=== PATIENT | female | born 1940 | race Caucasian/White ===

== ENCOUNTER → 2023-05-30 16:07 | Outpatient (REF) | payer MEDICARE, OTHER, SELFPAY | LOC: REG 16:07 | PROVIDERS: ATTENDING PHYSICIAN Nurse Practitioner Family; FAMILY PHYSICIAN Student in an Organized Health Care Education/Training Program | DX: J47.9 Bronchiectasis, uncomplicated (principal); R05.9 Cough, unspecified | CPT/HCPCS: 87070; 87205 ==

== ENCOUNTER 2024-01-25 09:12 | Inpatient (IN) | payer MEDICARE, OTHER, SELFPAY ==
[2024-01-25] VITALS (11 sets, daily range): BP systolic 110–139; BP diastolic 64–98; PULSE 62–97; O2SAT 95; BMI 21.8; BMI 21.0
--- NOTE | 2024-01-25 06:50 | ED.GENMED ---
History of Present Illness
General
Chief Complaint: Breathing Problem
Source: patient
Time Seen by Provider: 01/25/24 06:37
History of Present Illness
History of Present Illness:
83-year-old female presents emergency room complaining of shortness of breath. Patient has been experiencing shortness of breath over the past several days but symptoms seem to be worse tonight. In particular she could not lay back because she was
short of breath. Pt also noted lower ext edema. Unsure about weight gain. No chest pain. Pt has mild cough which is chronic. Pt is compliant with medications.
Past History
Past History
ED Past Medical History: Hypothyroidism and Other
ED Past Surgical History: Urological (Kidney stone surgery in the past)
Social History
Tobacco: Non-smoker
Alcohol: None
Drug: None
Personal:
Living: with family
Employment: Retired
Family History
Family History: Other (Noncontributory)
Phy Exam
Physical Exam
Physical Exam:
General: Awake, Alert, Oriented X3. No acute distress.
Vitals: unremarkable
Head: Atraumatic
Eyes: Pupils equal, EOMI
Throat: Airway intact, no exudates
Neck: Trachea midline
Lungs: Crackles bilateral bases
Heart: Regular rate, no murmurs
Abd: Soft, Nontender, No pulsatile mass
Neuro: Nonfocal
Skin: Warm, dry, no rash
Extremities: pulses equal b/l, 1+ edema
Scores
Heart Failure Risk
Heart Failure Risk Score: Yes
History of Stroke or TIA: No
History of intubation for respiratory distress: No
Heart rate on ED arrival >/= 110: No
SaO2 <90% on arrival on room air: No
HR >/=110 during 3min walk test (or too ill to perform test): Yes
ECG has acute ischemic changes: No
Urea >/=12mmol/L (BUN 33.6mg/dL): No
Serum CO2>/=35mmol/L: No
Troponin I or T elevated to NV Level (0.4mg/dL): No
NT-proBNP >/=5,000ng/L (5,000pg/ml): No
HF Risk Score: 2
Admission Status: MEDIUM RISK 9.2% Consider observation or discharge to home with homecare & f/u visit to PCP/Nurse Case Management, or SNF for treatment
Course
Orders/Labs/Results
Orders:
Orders
01/25/24 06:06
EKG [Electrocardiogram (*1)] Urgent
Reason for Study: Shortness of Breath
01/25/24 06:07
EKG- Treatment ONCE
01/25/24 06:47
Cardiac Monitoring- Treatment ONCE
CR Chest - 2 Views Urgent
Comment:
Reason For Exam: shortness of breath
01/25/24 07:09
Basic Metabolic Panel Urgent
Complete Blood Count/With Diff Urgent
NT-proBNP Urgent
Troponin I Urgent
01/25/24 07:56
Furosemide [Lasix] 40 mg IV NOW STA
01/25/24 08:32
Admit/Transfer Patient As Directed
Co-Sign Provider:
Level of Care: Inpatient admission
Assign to:: Telemetry
Physician / Group: Hospitalist
Diagnosis: CHF
Reason for Telemetry: Arrhythmia
Date to Stop Telemetry: 01/28/24
Time to Stop Telemetry: 11:00
Reason for Hospitalization: as above
Expected length of stay greater than two midnights?: Yes
ELOS- Estimated Length of Stay in days: 3
I certify the patient meets the requirements for IP care: Yes
PRN Pain Medication Management As Directed
May give lesser potent ordered pain med per pt: Yes
preference::
Protocol:: Medication orders for pain may be administered in a
manner that supports deferring to patient preference
when the pt is:
- Requesting an ordered lesser potent pain medication.
Least to most potent pain medications are defined
as: acetaminophen < NSAID < tramadol < opioids
(morphine, oxycodone, hydromorphone).
- Requesting a lesser dose of the same medication IF
ORDERED.
- Requesting a less intrusive route of administration
if both routes are prescribed by the provider (PO <
IV).
01/25/24 08:35
Code Status As Directed
Resuscitation Status: Do not resuscitate
Reached after discussion with pt or family/Healthcare POA: Yes
DNR Bracelet Application ONCE
01/25/24 09:58
Echo 2D MMode Color/Doppler Routine
Reason for Study: heart failure
CARDIOLOGY CONSULT Routine
Consulting Provider: Brice Gutiérrez
Was physician already notified: Yes
Reason for consult: HF
Activity As Directed
Activity Level: As Tolerated
Intake/ Output As Directed
Frequency: Per unit guidelines
Patient Education As Directed
Type: CHF folder
Comment: give on admission. Document in Interdisciplinary Education record
Vital Signs As Directed
Frequency: Other
Additional Instructions:: Q12 or per unit guidelines if more frequent.
Weight As Directed
Frequency: Daily
Type of Scale: Standing Scale
Comment: Daily morning weight. If unable to stand, use balanced bed scale.
Weight As Directed
Frequency: Once
Type of Scale: Standing Scale
Comment: Upon Admission. If unable to stand, use balanced bed scale.
Pulse Ox/cont/shift [RESP] Routine
Quantity: 1
Special Instructions: Daily pulse oximetry at rest. If greater than 92% at rest also obtain pulse oximetry
while ambulating as tolerated.
Ot Eval And Treat Routine
Pt Eval And Treat Routine
Activity Level: Ambulate
01/25/24 Lunch
2 Gram Sodium [Sodium, 2 Gram]
At Your Request: Full Participation
01/25/24 16:00
Furosemide [Lasix] 40 mg IV BID AT 0800,1600
01/25/24 18:00
Atorvastatin [Lipitor] 40 mg PO QPM
Famotidine [Pepcid] 20 mg PO QPM
01/25/24 20:00
Apixaban [Eliquis] 2.5 mg PO BID
Metoprolol Xl [Toprol Xl] 12.5 mg PO BID
01/26/24 08:00
Cholecalciferol (Vitamin D3) [VITAMIN D3 (cholecalciferol)] 25 mcg PO DAILY
Cyanocobalamin [Vitamin B-12] 500 mcg PO MoWeFr@0800
Multivitamin [Theragran] 1 tablet PO DAILY
Potassium Citrate [Urocit-K] 10 meq PO DAILY
Psyllium [Metamucil, Konsyl] 1 packet PO DAILY
01/28/24 11:00
DC Protocol for Telemetry ONCE
Abnormal Lab Results
01/25/24
07:09
Absolute Lymphs (auto) 1.1 L 10^3/uL
(1.2-3.4)
Absolute Monos (auto) 0.8 H 10^3/uL
(0.1-0.6)
Lymphocytes % 19.5 L %
(20.5-51.1)
Monocytes % 13.4 H %
(1.7-9.3)
Chloride 97 L mmol/L
(98-107)
BUN 21 H mg/dl
(7-17)
Glucose 112 H mg/dl
(70-99)
01/25/24 07:09
01/25/24 07:09
Vital Signs
Initial and Last Documented VS:
Initial Vital Signs
Temp Pulse Resp BP Pulse Ox
98.5 F 92 22 134/85 94
01/25/24 06:16 01/25/24 06:16 01/25/24 06:16 01/25/24 06:16 01/25/24 06:16
Last Documented Vital Signs
Temp Pulse Resp BP Pulse Ox
97.7 F 94 18 118/75 94
01/25/24 10:18 01/25/24 10:18 01/25/24 10:18 01/25/24 10:18 01/25/24 10:18
MDM/Problems Addressed
Differential Diagnosis Includes:
CHF, symptomatic anemia, acute coronary syndrome
MDM/Problems Addressed:
Patient presents with progressive shortness of breath and peripheral edema. Workup here reveals bilateral pleural effusions with pulmonary edema as well as an elevated BNP. Troponins normal. EKG does not show any acute ischemic changes. She is
in A-fib but has a history of this. She is anticoagulated. Patient will require hospitalization for diuresis and further workup as she has no history of CHF.
*Radiology
Radiology exam reviewed: preliminary read by ED provider (Pulmonary edema with bilateral pleural effusions)
*Pulse Oximetry
Patient hypoxic: no
*EKG
Interpreted by ED Provider?: Yes
Interpretation: abnormal
Heart Rate: 101
Rate: tachycardiac
QRS Pattern: left vent hypertrophy
Ischemia: ST depression
*[employer] Interpretation
Rate: tachycardiac
Heart Rate: 101
Rhythm: a-fib
*Critical Care Note
Total Time (30-74mins, 75-104mins- exclusive of procedures): Not Applicable
ED Attending Note
-
Portions of this chart may have been created with voice recognition software.� Occasional wrong word or��sound alike� substitutions may have occurred due to the inherent limitations of voice recognition software.
Discharge Plan
Departure
Patient Disposition: Admit
Date of Disposition: 01/25/24
Time of Disposition: 08:02
Admit to: Med/Surg
Presentation/result/management discussed w/ accepting MD/DO: Hospitalist
Condition: Fair
Discharge Problem:
CHF (congestive heart failure)
Interventions
Interventions:
*Risk Screen - Suicide Last Done: 01/25/24 06:16
*General Assessment Last Done: 01/25/24 07:25
*Neglect/Abuse Screening Last Done: 01/25/24 07:25
ED- Fall Risk Assessment Last Done: 01/25/24 09:03
*ED COVID-19 Vaccine History Last Done: 01/25/24 10:44
*Nursing Disposition Last Done: 01/25/24 09:55
ED- Cardiac Assessment Last Done: 01/25/24 07:24
ED- Pulmonary Assessment Last Done: 01/25/24 07:24
Discharge Date and Time
Discharge Date/Time: 01/25/24 09:56
[2024-01-25 07:26] LABS: % Basophils 0.7 % (0-2); % Eosinophils 2.6 % (0-6); % Immature Granulocytes 0.3 % (0-0.5); % Lymphocytes 19.5 % (20.5-51.1); % Monocytes 13.4 % (1.7-9.3); % Neutrophils 63.5 % (42.2-75.2); Absolute Eosinophils 0.2 10^3/uL (0-0.7); Absolute Lymphocytes 1.1 10^3/uL (1.2-3.4); Absolute Monocytes 0.8 10^3/uL (0.1-0.6); Absolute Neutrophils 3.7 10^3/uL (1.4-6.5); Hematocrit 40.4 % (37.0-47.0); Hemoglobin 13.5 g/dL (12.0-16.0); Mean Corp Hgb Conc. 33.4 g/dL (33.0-37.0); Mean Corpuscular Volume 86.7 fL (81.0-99.0); Mean Platelet Volume 9.5 fL (7.4-10.4); Nucleated Red Blood Cells % 0 %; Platelet Count 219 10^3/uL (130-400); Red Blood Cell Count 4.66 10^6/uL (4.20-5.40); White Blood Cell Count 5.8 10^3/uL (4.8-10.8)
[2024-01-25 07:40] LABS: Blood Urea Nitrogen 21 mg/dl (7-17); Calcium 9.1 mg/dl (8.4-10.2); Carbon Dioxide 28 mmol/L (22-30); Chloride 97 mmol/L (98-107); Estimated Creatinine Clearance 46 ml/min; Glucose 112 mg/dl (70-99); Potassium 3.8 mmol/L (3.5-5.1); Sodium 136 mmol/L (135-145); eGFR > 60.00
[2024-01-25 07:51] LABS: NT-proBNP 3100 pg/ml; Troponin I < 0.012 ng/ml
[2024-01-25] MEDS: LASIX 40 MG IV ×2 (08:05→16:32)
--- NOTE | 2024-01-25 08:44 | CM ---
Patient seen at bedside in ED. Patient states that she lives in independent apartment at [facility] and her is in [facility] with end stage Kidney CA on Hospice. Patient states that she is not driving due to stroke, no other DME.
Patient has no history of VN, SNF or aides. Patient PCP is Dr. Hoff and [facility] in [facility]. Patient plan is to return to her home/ apartment. CM will continue to follow for discharge planning needs.
Plan; home with VN vs SNF pending medical treatment plan
--- NOTE | 2024-01-25 09:59 | HPS.HSE ---
Addendum entered and electronically signed by Andrei Vera MD, Resident 01/26/24 12:30:
Patient reports History of Benign Brain meningioma s/p Resection.
Addendum entered and electronically signed by Kait Otoole MD 01/25/24 16:36:
I personally performed a history and physical exam of the patient and discussed management with the resident. I reviewed the resident's note and agree with the documented findings and plan of care HPI/CC.
GENERAL: well developed, well nourished, female in no apparent distress
HEENT: NC/AT
HEART: irreg irreg
LUNGS : crackles at bases
ABDOM: soft, nontender, nondistended, + bowel sounds
EXT: no cyanosis, clubbing, or edema
NEUROLOGIC: grossly intact
Acute diastolic HF (preserved EF)--no history of CHF--pro BNP 3100 on admission-Volume overloaded on physical examination--CXR on presentation with moderate right pleural effusion with small left pleural effusion--could consider thoracentesis but pt
on eliquis.....agree with IV lasix 40 mg BID, daily weights, I/Os--apprec cards--echo with EF 50-55%, valvular isses (mitral regurg, tricuspid regurg, possible PFO?--apprec cards
Paroxysmal atrial fibrillation--EKG on presentation A-fib with RVR, although spontaneously converted back to normal sinus rhythm--Continue metoprolol succinate for rate control--cont Eliquis
Chronic recurrent kidney stones--Continue on home hydrochlorothiazide and potassium citrate
GERD--Continue famotidine
Prior CVA 2020/Hyperlipidemia-Continue on atorvastatin
DVT prophy-- Eliquis
CODE STATUS-- DNR
of note-- is imminently dying, would like to d/c pt if possible tomorrow
Original Note:
Family Physician
-
Family Physician: Gisselle Juarez
Chief Complaint
-
Shortness of breath
History of Present Illness
This is an 83-year-old female with past medical history of bronchiectasis, paroxysmal atrial fibrillation, hyperlipidemia, prior CVA, recurrent kidney stones who presents to ED for worsening shortness of breath. Patient reports she has been
experiencing shortness of breath over the past few days. Shortness of breath occurs at rest and with exertion. She reports while trying to lay back last night to sleep, shortness of breath worsened hence prompting her to come to the ED for
evaluation. In addition patient has noted lower extremity edema ongoing for the past few weeks. She reports she does not weigh herself, and does not think she has gained weight. She denies fever chest pain, palpitations. She reports mild cough
secondary to her chronic bronchiectasis. On presentation to ER, patient was afebrile, blood pressure 134/85, pulse 92, O2 sats 94% on room air. Evaluation with chest x-ray showed Moderate right pleural effusion with small left pleural effusion.
Medical History
Past Medical History
Past Medical History: Reports Other (Paroxysmal atrial fibrillation, prior CVA 3 years ago, GERD, recurrent chronic kidney stones, bronchiectasis, brain meningioma.)
Past Surgical History: Reports Other (Cataract surgery, meningioma tumor removal, pacemaker insertion with loop recorder.)
Social History
Tobacco: Non-smoker
Alcohol: None
Drug: None
Personal:
Living: Assisted Living
Employment: Retired
Family History
Family History: Cancer (Father: Lung cancer)
Allergies / Home Medications
Allergies reflects when Allergies were last updated in [facility].
Home Medications with original date entered in [facility]
Allergy/Medication List:
Allergies
Allergy/AdvReac Type Severity Reaction Status Date / Time
meperidine HCl [From Demerol] Allergy Unknown Swelling Verified 01/25/24 06:15
levofloxacin [From Levaquin] Allergy dizziness Verified 01/25/24 06:15
Home Medications
cyanocobalamin (vitamin B-12) 500 mcg tablet (Vitamin B-12) 500 mcg PO MOWEFR Supplement 01/04/09
hydrochlorothiazide 25 mg tablet 12.5 mg PO DAILY Blood Pressure 01/04/09
metoprolol succinate 25 mg tablet,extended release 24 hr 12.5 mg PO BID Blood Pressure 04/25/16
famotidine 20 mg tablet 20 mg PO HS Gastrointestinal Issue 02/11/19
methenamine hippurate 1 gram tablet 1 g PO BID Urinary Issue 02/11/19
cholecalciferol (vitamin D3) 25 mcg (1,000 unit) capsule (Vitamin D3) 1,000 unit PO DAILY Supplement 04/05/19
potassium citrate 10 mEq (1,080 mg) tablet,extended release 10 meq PO DAILY Electrolyte Repletion 04/05/19
psyllium husk (aspartame) 3.4 gram oral powder packet (Metamucil Fiber Singles) 2 tsp PO DAILY Constipation 04/05/19
apixaban 5 mg tablet (Eliquis) 2.5 mg PO BID Blood Clot Prevention/Tx 09/20/20
atorvastatin 20 mg tablet (Lipitor) 20 mg PO HS High Cholesterol 01/25/24
therapeutic multivitamin 1 tab PO DAILY Supplement 01/25/24
Review of Systems
-
A 12 point ROS was completed and negative except as noted: Yes
Constitutional: Reports See HPI
Respiratory: Reports Trouble Breathing
Cardiac: Reports No Symptoms
Physical Exam
Vital Signs
Vital Signs
Temp Pulse Resp BP Pulse Ox
98.5 F 100 16 120/98 94
01/25/24 06:16 01/25/24 09:00 01/25/24 09:00 01/25/24 09:00 01/25/24 09:00
Physical Exam
General: Well Developed and No Apparent Distress
HEENT: NormoCephalic
Respiratory: Crackles (Bilateral crackles at bases)
Cardiac: S1/S2 and Regular Rhythm
GI: Soft, Non Tender, Non Distended and Normal Bowel Sounds
Musculoskeletal: Edema, Left Lower Extremity and Edema, Right Lower Extremity
Neuro: Awake, Alert, Oriented and AO x 3
Psych: Calm
Laboratory Results
-
01/25/24 07:09
01/25/24 07:09
Laboratory Results
Troponin I < 0.012 ng/ml 01/25/24 07:09
Impression/Plan
-
IMPRESSION/PLAN:
#Acute HF(EF Unknown)
-Volume overloaded on physical examination
-CXR on presentation with moderate right pleural effusion with small left pleural effusion
-proBNP 3100
-Given one-time IV Lasix 40 mg in ED
-Continue IV Lasix 40 mg twice daily.
-I's and O's, daily weights
-Cardiology consulted
-Echocardiogram ordered
#Paroxysmal atrial fibrillation
-EKG on presentation A-fib with RVR, although spontaneously converted back to normal sinus rhythm.
-Continue metoprolol succinate for rate control.
-Anticoagulation with Eliquis.
#Chronic recurrent kidney stones
-Continue on home hydrochlorothiazide and potassium citrate
#GERD
-Continue famotidine
#Prior CVA 2020
#Hyperlipidemia
-Continue on atorvastatin
DVT prophylaxis; Eliquis
CODE STATUS; DNR
--- NOTE | 2024-01-25 10:33 | CON.CAR ---
Addendum entered and electronically signed by Brice Gutiérrez MD 01/25/24 16:55:
I saw and examined the patient.
The Chimney Sweeper's note was reviewed and I agree with the note.
Comment: Briefly, 83-year-old woman past medical history of paroxysmal atrial fibrillation and prior CVA who presents with dyspnea and lower extremity edema concerning for decompensated heart failure
proBNP elevated above 3000 and CXR c/w pulmonary edema and pleural effusions
TTE with preserved LV function, but worsening MR/TR
Would continue IV diuresis with Lasix twice daily, explained that we should discharge on low-dose oral Lasix as well in place of her hydrochlorothiazide
Admission ECG showing atrial fibrillation which may be contributing to her CHF exacerbation
Monitor on telemetry overnight
May benefit from antiarrhythmic drug or repeat ablation which could be considered as an outpatient
Continue Eliquis for cardioembolic prophylaxis
She is hopeful to be discharged as soon as possible given that her is on hospice
Original Note:
Consultation
Consultation Request
Date/Time Consultation Performed: 01/25/24
Requesting Provider: Dr. Otoole
Performing Provider: Eva Underwood PA-C for Dr. Gutiérrez
Reason for Consultation: afib, CHF
Medical History
-
Chief Complaint: SOB
History of Present Illness:
Patient is an 83 yo F with PMH of bronchiectasis, history of CVA with L visual field deficit, resection of right occipital meningioma 07/2021 at [facility], history of SVT vs atach ablation at [facility] 1998, PAF with prior loop
implants (now nonfunctional - last interrogation from 09/11/22 with 0.6% afib burden) with historically low burden of typically 1-3% who presents to with complaints of SOB. She reports she has noted shortness of breath over the last several days.
She states that last night it was worse to the point where she was unable to sleep and unable to lay flat. She reports over the last 1 to 2 weeks she has noted ankle and feet swelling. She states she is chronically on HCTZ 12.5 mg daily, however
this was not for blood pressure or swelling, but for kidney stone prevention. She reports she does not feel her atrial fibrillation, however by her last office visit in June, burden was felt to be stable and no changes were made. She is
maintained on Toprol and Eliquis as an outpatient. On arrival noted to be in atrial fibrillation with heart rates around 100. Also noted to have evidence of heart failure by both chest x-ray with bilateral effusions and pulmonary edema and proBNP
of 3100. Cardiology consulted for evaluation
PMH:
PAF, historically burdens of 1-3% by loop recorder
Chronic OAC with eliquis
history of SVT vs atach ablation at [facility] 1998
history of CVA with L visual field deficit
resection of right occipital meningioma 07/2021 at [facility]
bronchiectasis
History of kidney stones
HLD
GERD
Past Medical History
Past Medical History: Other (in HPI)
Social History
Tobacco: Non-Smoker
Alcohol: None
Personal:
Employment: Retired
Family History
Family History: Reviewed & Not Pertinent
Allergies / Home Medications
Allergy/AdvReac Type Severity Reaction Status Date / Time
meperidine HCl [From Demerol] Allergy Unknown Swelling Verified 01/25/24 06:15
levofloxacin [From Levaquin] Allergy dizziness Verified 01/25/24 06:15
�Medication �Instructions �Recorded �Confirmed �Type
cyanocobalamin (vitamin B-12) 500 500 mcg PO MOWEFR Supplement 01/04/09 01/25/24 History
mcg tablet (Vitamin B-12)
hydrochlorothiazide 25 mg tablet 12.5 mg PO DAILY Blood Pressure 01/04/09 01/25/24 History
metoprolol succinate 25 mg 12.5 mg PO BID Blood Pressure 04/25/16 01/25/24 History
tablet,extended release 24 hr
famotidine 20 mg tablet 20 mg PO HS Gastrointestinal Issue 02/11/19 01/25/24 History
methenamine hippurate 1 gram tablet 1 g PO BID Urinary Issue 02/11/19 01/25/24 History
cholecalciferol (vitamin D3) 25 1,000 unit PO DAILY Supplement 04/05/19 01/25/24 History
mcg (1,000 unit) capsule (Vitamin
D3)
potassium citrate 10 mEq (1,080 10 meq PO DAILY Electrolyte 04/05/19 01/25/24 History
mg) tablet,extended release Repletion
psyllium husk (aspartame) 3.4 gram 2 tsp PO DAILY Constipation 04/05/19 01/25/24 History
oral powder packet (Metamucil
Fiber Singles)
apixaban 5 mg tablet (Eliquis) 2.5 mg PO BID Blood Clot 09/20/20 01/25/24 History
Prevention/Tx
atorvastatin 20 mg tablet (Lipitor) 20 mg PO HS High Cholesterol 01/25/24 01/25/24 History
therapeutic multivitamin 1 tab PO DAILY Supplement 01/25/24 01/25/24 History
Review of Systems
-
History Source: Patient
All other systems: Negative unless noted
Physical Exam
Vital Signs
Temp Pulse Resp BP Pulse Ox
97.7 F 94 18 118/75 94
01/25/24 10:18 01/25/24 10:18 01/25/24 10:18 01/25/24 10:18 01/25/24 10:18
Lab Results
01/25/24 07:09
01/25/24 07:09
Troponin I < 0.012 ng/ml 01/25/24 07:09
Wta-Z-Oqksbfouamc Pept 3100 pg/ml 01/25/24 07:09
Physical Exam
General: No Apparent Distress and Comfortable
HEENT: Normocephalic, Anicteric and Moist Mucous Membranes
Respiratory: Crackles, Non Labored Respirations and Other (decreased BS B/L bases)
Cardiac: S1/S2 and Irregular Rhythm
GI: Soft, Non Tender, Non Distended and Normal Bowel Sounds
Musculoskeletal: No Clubbing, No Cyanosis and Edema (1+ of B/L LE)
Skin: Warm and Dry
Neuro: AO x 3
Impression / Plan
-
Primary Safety Supervisor: Dr. Valerio Allison
Assessment:
Presentation with SOB, LE edema
Acute CHF, unknown type
PAF, historically burdens of 1-3% by loop recorder
Chronic OAC with eliquis
history of SVT vs atach ablation at [facility] 1998
history of CVA with L visual field deficit 2020
resection of right occipital meningioma 07/2021 at [facility]
bronchiectasis
History of kidney stones
HLD
GERD
ECHO 01/2015 at [facility]: EF 50%, abnormal septal motion, basal to mid anterolateral wall poorly visualized, mild MAC, mild MR, mild to moderate AR, mild TR, mild PI, PASP 25 mmHg
Plan:
-Patient presented to [facility] with shortness of breath and lower extremity edema.
-proBNP 3100. Chest x-ray with evidence of bilateral pleural effusions and pulmonary edema consistent with acute heart failure. Continue diuresis with IV Lasix. Creatinine stable. On HCTZ 12.5 mg daily as an outpatient for kidney stone
prevention, no history of heart failure before, hold while on IV lasix.
-CHF education
-Check echo, last from 2014 at [facility] with results as above
-ordered TSH
-troponin negative x1
-Currently in atrial fibrillation. By reports of prior loop recorder interrogations, A-fib burden has been 1 to 3%. Concern with new heart failure of increasing A-fib burden. Heart rates on review of telemetry around 100. Will attempt to
increase outpatient Toprol from 12.5 mg BID to 25 mg BID
-May need to consider addition of antiarrhythmic drug therapy if paroxysmal
-Continue Eliquis
-Outpatient EP evaluation to discuss potential ablation
Data Reviewed
-
EKG: Tracing Personally Visualized and interpreted
Radiology: Report Reviewed by me
Medical Tests (Nuc Med, Echo etc): Report Reviewed by me
Labs: Labs Reviewed by me
Old Records: Reviewed
--- NOTE | 2024-01-25 11:00 | PTCARENOTE ---
Patient received from ED. Ambulated for stretcher to bed without difficulty. AAOx3, VSS WNL. Oriented to unit.
[2024-01-25] MEDS: LIPITOR 40 MG PO (16:32)
[2024-01-25] MEDS: PEPCID 20 MG PO (16:32)
[2024-01-25] MEDS: ELIQUIS 2.5 MG PO (20:24)
[2024-01-25] MEDS: TOPROL XL 25 MG PO (20:25)
[2024-01-26 03:24] VITALS: BP 116/73
[2024-01-26 06:00] VITALS: BMI 20.8
--- NOTE | 2024-01-26 07:08 | W.PN.HOSP.TC ---
Addendum entered and electronically signed by Kait Otoole MD 01/26/24 12:49:
agree that patient had benign brain tumor s/p surgery years ago
Addendum entered and electronically signed by Kait Otoole MD 01/26/24 12:48:
I saw and evaluated the patient independently. I reviewed the resident�s note and agree with findings and plan as documented by Dr. Vera.
GENERAL: well developed, well nourished, female in no apparent distress
HEENT: NC/AT
HEART: irreg irreg
LUNGS : clear to auscultation
ABDOM: soft, nontender, nondistended, + bowel sounds
EXT: no cyanosis, clubbing, or edema
NEUROLOGIC: grossly intact
Acute diastolic HF (preserved EF)--no history of CHF--pro BNP 3100 on admission--Volume overloaded on physical examination--CXR on presentation with moderate right pleural effusion with small left pleural effusion--could consider thoracentesis but
pt on eliquis.....improved with IV lasix 40 mg BID, daily weights, I/Os--apprec cards--echo with EF 50-55%, valvular issues (mitral regurg, tricuspid regurg, possible PFO?)--apprec cards--d/c on lasix 20 mg daily, f/u with cards and PCP as outpt
Paroxysmal atrial fibrillation--EKG on presentation A-fib with RVR, although spontaneously converted back to normal sinus rhythm--Continue metoprolol succinate for rate control--cont Eliquis
Chronic recurrent kidney stones--stop home hydrochlorothiazide and cont potassium citrate
GERD--Continue famotidine
Prior CVA 2020/Hyperlipidemia--Continue on atorvastatin, increase dose
DVT prophy-- Eliquis
CODE STATUS-- DNR
of note-- is imminently dying, d/c pt
Original Note:
Today's Communication/Plan
-
D/c today on :
lASIX 20MG dAILY.
f/U with cardiology outpatient.
Metoprolol succinate dosage increase to 25mg BID.
Assessment / Plan
Assessment / Plan
IMPRESSION/PLAN:
#Acute HFpEF- New onset
-CXR on presentation with moderate right pleural effusion with small left pleural effusion
-proBNP 3100
-Given one-time IV Lasix 40 mg in ED
-On IV Lasix 40 mg twice daily.
-I's and O's in the neagtives. Weight down 3kg.
-Cardiology input appreciated.
-Echocardiogram-Left ventricular ejection fraction is 50- 55%. Moderate to severe mitral regurgitation. Moderate to severe tricuspid regurgitation. Left to right shunt across the interatrial septum by color flow suggestive of
ASD/PFO.
#Paroxysmal atrial fibrillation
-EKG on presentation A-fib with RVR, although spontaneously converted back to normal sinus rhythm.
-Cardiology input appreciated.
-Increase metoprolol succinate dosage to 25mg BID for rate control.
-Anticoagulation with Eliquis.
#Chronic recurrent kidney stones
-Stop home hydrochlorothiazide, continue potassium citrate
#GERD
-Continue famotidine
#Prior CVA 2020
#Hyperlipidemia
-Continue on atorvastatin
DVT prophylaxis; Eliquis
CODE STATUS; DNR
Anticipated Discharge: Today
Subjective/Interval History
-
Patient seen and examined at bedside. Denies acute complaints. Denies CP, SOB, Palpitation.
Objective Data
-
Labs:
Laboratory Results
01/26/24
06:00
WBC Pending
Hgb Pending
Hct Pending
Plt Count Pending
Sodium Pending
Potassium Pending
Chloride Pending
Carbon Dioxide Pending
BUN Pending
Creatinine Pending
Glucose Pending
Calcium Pending
Vital Signs:
Vital Signs
Temp Pulse Resp BP Pulse Ox
98.1 F 85 16 116/73 95
01/26/24 03:24 01/26/24 03:24 01/26/24 03:24 01/26/24 03:24 01/26/24 03:24
I&O
01/25/24 01/26/24 01/27/24
06:59 06:59 06:59
Intake Total 660 / 660
Output Total 1425 / 1425
Balance -765 / -765
Review of Systems
-
All other systems: Reviewed and negative (EXCEPT DOCUMENTED)
Physical Exam
-
General: Well Nourished and No Apparent Distress
Respiratory: Crackles (MILD b/l); Negative Wheezes
Cardiac: Regular Rhythm and S1/S2
GI: Soft, Nontender, Nondistended and Normal Bowel Sounds
Musculoskeletal: No Edema
Neuro: Awake, Alert, Oriented and AO x 3
Psych: Calm
[2024-01-26 07:25] VITALS: BP 122/77
[2024-01-26] MEDS: ELIQUIS 2.5 MG PO (07:49)
[2024-01-26] MEDS: VITAMIN D3 (cholecalciferol) 25 MCG PO (07:49)
[2024-01-26] MEDS: UROCIT-K 10 MEQ PO (07:50)
[2024-01-26] MEDS: TOPROL XL 25 MG PO (07:50)
[2024-01-26] MEDS: THERAGRAN 1 TABLET PO (07:50)
[2024-01-26] MEDS: LASIX 40 MG IV (07:53)
[2024-01-26] MEDS: VITAMIN B-12 500 MCG PO (07:56)
[2024-01-26 07:58] LABS: Hematocrit 42.5 % (37.0-47.0); Hemoglobin 14.1 g/dL (12.0-16.0); Mean Corp Hgb Conc. 33.2 g/dL (33.0-37.0); Mean Corpuscular Hgb 29.4 pg (27.0-31.0); Mean Corpuscular Volume 88.5 fL (81.0-99.0); Mean Platelet Volume 9.6 fL (7.4-10.4); Platelet Count 230 10^3/uL (130-400); White Blood Cell Count 5.9 10^3/uL (4.8-10.8)
[2024-01-26 09:05] VITALS: BP 102/59; PULSE 90; O2SAT 94
--- NOTE | 2024-01-26 09:06 | W.PN.CARDCBS ---
Today's Communication / Plan
-
continue toprol 25mg BID, eliquis
transition to po lasix 20mg daily for DC
BMP in 1 week
will arrange OP cardiac follow up
Impression / Plan
-
Primary Education Faculty Member: Dr. Valerio Allison
Assessment:
Presentation with SOB, LE edema
Acute HFpEF
mod to severe MR
PAF, historically burdens of 1-3% by loop recorder
Chronic OAC with eliquis
history of SVT vs atach ablation at [facility] 1998
history of CVA with L visual field deficit 2020
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
bronchiectasis
History of kidney stones
HLD
GERD
ECHO 01/2015 at [facility]: EF 50%, abnormal septal motion, basal to mid anterolateral wall poorly visualized, mild MAC, mild MR, mild to moderate AR, mild TR, mild PI, PASP 25 mmHg
ECHO 01/25/24: EF 50 to 55%, abnormal septal motion consistent with left bundle branch block, mild concentric LVH, severely dilated bilateral atria, moderate to severe MR, mild , mild AR, moderate to severe TR, PAP 30 to 35 mmHg, left to right
shunt suggestive of ASD/PFO
Plan:
-Patient reports breathing is improved this morning. She states she had good response to IV Lasix. Was on HCTZ 12.5 mg daily as an outpatient for kidney stone prevention. No history of heart failure before. discussed with hospitalist/resident -
plan to DC on po lasix 20mg daily
-Advised to follow daily weights as outpatient. CHF education
-BMP in 1 week
-Remains in atrial fibrillation, however heart rates better controlled on increased dose Toprol 25 mg twice daily. She is typically asymptomatic with A-fib. Concern with new heart failure of increasing A-fib burden. Echocardiogram also with
moderate to severe MR which could be contributing to atrial arrhythmia. She is also under significantly increased stress as her is on hospice at present and is eager for DC today
-Previously A-fib burden by prior loop recorder interrogations has been 1 to 3%. Her loop recorder is now nonfunctional. Discussed if remains in atrial fibrillation as outpatient, could consider for cardioversion as well as antiarrhythmic drug
therapy. Could also consider for ablation, however she is hesitant to consider invasive option
-continue eliquis
-Results of echo reviewed with patient 01/26/2024
-TSH pending
-Troponin negative
-ok for DC to home today
-OP cardiac follow up arranged
Progress Note - Education Faculty Member
Subjective
Date of Service: January 26, 2024
reports improvement in breathing. no palpitations. eager for DC today
Objective
Labs:
01/26/24 07:41
Labs
Hgb 14.1 g/dL (12.0-16.0) 01/26/24 07:41
Hct 42.5 % (37.0-47.0) 01/26/24 07:41
Plt Count 230 10^3/uL (130-400) 01/26/24 07:41
Sodium 136 mmol/L (135-145) 01/25/24 07:09
Potassium 3.8 mmol/L (3.5-5.1) 01/25/24 07:09
BUN 21 mg/dl (7-17) H 01/25/24 07:09
Creatinine 0.8 mg/dL (0.6-1.0) 01/25/24 07:09
Glucose 112 mg/dl (70-99) H 01/25/24 07:09
Troponins
01/25/24
07:09
Troponin I < 0.012
Vital Signs and I&O:
Vital Signs
Temp Pulse Resp BP Pulse Ox
98.5 F 98 18 122/77 95
01/26/24 07:25 01/26/24 07:53 01/26/24 07:25 01/26/24 07:53 01/26/24 07:25
Vital Signs
Temp Pulse Resp BP Pulse Ox
98.5 F 98 18 122/77 95
01/26/24 07:25 01/26/24 07:53 01/26/24 07:25 01/26/24 07:53 01/26/24 07:25
Intake & Output
01/24/24 01/25/24 01/26/24 01/27/24
07:59 07:59 07:59 07:59
Intake Total 660 / 660
Output Total 1425 / 1425
Balance -765 / -765
Physical Exam
Physical Exam
GEN: No distress, awake, alert, oriented x3. sitting in chair
HEENT: supple, anicteric, mmm, eomi
LUNGS: Few crackles RLB
CV: Reg, S1/S2, 2/6 murmur
ABD: soft, BS+, NT/ND
EXT: No cyanosis, clubbing. trace edema of B/L LE
NEURO: Gross non-focal
SKIN: Warm, pink, dry. No rash
[2024-01-26 09:38] LABS: Blood Urea Nitrogen 23 mg/dl (7-17); Calcium 9.1 mg/dl (8.4-10.2); Carbon Dioxide 30 mmol/L (22-30); Chloride 97 mmol/L (98-107); Estimated Creatinine Clearance 53 ml/min; Glucose 101 mg/dl (70-99); Potassium 3.7 mmol/L (3.5-5.1); Sodium 140 mmol/L (135-145); eGFR > 60.00
--- NOTE | 2024-01-26 09:38 | PTCARENOTE ---
Patient awaiting discharge to home. IV and tele removed. Patient awaiting son for transport.
--- NOTE | 2024-01-26 10:06 | W.DCSUMMARY ---
Addendum entered and electronically signed by Kait Otoole MD 01/26/24 17:21:
Read, reviewed, and agree. See same day progress note for additional details. Time spent coordinating care, DC planning, review of DC plan of care with resident, transition of care, review of records in EMR, med rec, consults, notes, d/w
consultants, nursing, family, and CM = 39minutes
Original Note:
Discharge Summary
Discharge Data
Date of Admission: 01/25/24
Date of Discharge: 01/26/24
Total time spent discharging patient (in min): 39
-
Pending Results: No
Hospital Course
Principal Discharge diagnosis : New onset acute HFpEF
Chronic Discharge diagnosis : Paroxysmal atrial fibrillation, moderate to severe MR, Chronic recurrent kidney stones, GERD
Hospital Course : This is an 83-year-old female with past medical history of paroxysmal atrial fibrillation, hyperlipidemia, prior CVA, recurrent kidney stones who presented to ED for worsening shortness of breath. She reports while trying to
lay back the night before to sleep, shortness of breath worsened hence prompting her to come to the ED for evaluation. In addition patient has noted lower extremity edema ongoing for the past few weeks. She reports she does not weigh herself, and
does not think she has gained weight. Patient stated she has not experienced these symptoms in the past. On presentation to ER, patient was afebrile, blood pressure 134/85, pulse 92, O2 sats 94% on room air. proBNP elevated at 3100.
Evaluation with chest x-ray showed Moderate right pleural effusion with small left pleural effusion. Noted to be in atrial fibrillation with heart rates around 100, although spontaneously converting to Normal Sinus Rhythm a few hours after. She was
given 40 mg of IV Lasix in the ED. Cardiology was consulted for evaluation due to concerns of new heart failure. She was continued on IV diuresis with Lasix twice daily. Echocardiogram was ordered which showed preserved left ventricular function
but worsening mitral regurgitation and tricuspid regurgitation. She was monitored on telemetry overnight. Shortness of breath improved with IV diuresis with the weight down 3 kg since presentation, improvement of crackles bilateral lung bases.
Due to imminently dying on hospice, she requested that we discharge her today if possible. She will be discharged home today on oral Lasix 20 mg daily, required to follow-up with cardiology as an outpatient. In addition patient is required
to get a BMP redrawn on Monday.
Paroxysmal atrial fibrillation; on presentation to ER, patient was noted to be in atrial fibrillation with heart rates around 100 on EKG. Although she converted to normal sinus rhythm spontaneously a few hours later. Cardiology recommended
increasing outpatient Toprol dosage from 12.5 mg twice daily to 25 mg twice daily. She will be continued on her current home dosage of Eliquis.
Chronic recurrent kidney stones; patient reports history of chronic kidney stones in the past. She was put on hydrochlorothiazide 12.5 mg daily as an outpatient for kidney stone prevention. Due to her new onset CHF, she will be discontinued on her
hydrochlorothiazide dosage.
On the day of discharge, patient awake alert in no acute distress. Lungs with few crackles at bases bilaterally. S1-S2 present. Rate regular, rhythm regular. Abdomen soft, nontender, nondistended. Blood pressure 122/77, pulse 98, respiratory
rate 18, afebrile, O2 sats 95% on room air.
Important imaging findings : Echocardiogram 01/25/2024; Normal left ventricular chamber size. Left ventricular ejection fraction is 50-
55% by volumetric assessment. Abnormal (paradoxical) septal motion consistent
with left bundle branch block. Mild concentric left ventricular hypertrophy.
Diastolic function indeterminate due to atrial fibrillation.
Normal right ventricular size and function.
Severely dilated atria.
Moderate to severe mitral regurgitation.
Mild aortic stenosis. Mild aortic regurgitation.
Moderate to severe tricuspid regurgitation. Estimated pulmonary artery pressure
of 30-35 mmHg assuming a right atrial pressure of 3 mmHg.
Left to right shunt across the interatrial septum by color flow suggestive of
ASD/PFO.
Compared to prior study dated 10/17/2016: mitral and tricuspid regurgitation
were previously mild; aortic stenosis is now present; atria were previously
mildly dilated.
Discharge Plan
-
Patient Disposition: Home (Routine Discharge)
Discharge Diagnosis/Procedures: Acute Heart Failure with Preserved Ejection fraction
Paroxysmal Atrial fibrillation
Condition: Fair
Diet: 2 Gram Sodium
Activity: As tolerated
Driving Restrictions: As prior to admission
Bathing Restrictions: None
Blood Work: BMP in 1 week
Specialty Instructions: Weigh Daily- Call MD for wt gain/loss 3 lbs overnight/5 lbs in 1 week
Instructions: *[facility]CA Heart Failure Instructions
Referrals:
Gisselle Juarez MD [Family Provider] - in less than 1 week
Denise Jones PA-C [Specified Professional Personl] - 01/31/24 3:00 pm (You have a cardiology follow up appointment at the [place] office with Dr. Luo's physician payroll human resources assistant, Denise. Please call with questions. )
Additional Discharge Medication Instructions: Atorvastatin dosage increased to 40mg
Stop HCTZ
Start Lasix 20mg PO daily
Increase Metoprolol succinate dosage to 25mg BID
Prescriptions:
New
atorvastatin 40 mg Tablet
40 mg PO QPM Qty: 30 0RF
metoprolol succinate 25 mg Tablet Extended Release 24 Hr
25 mg PO BID Qty: 30 0RF
furosemide [Lasix] 20 mg tablet
20 mg PO DAILY Qty: 30 0RF
Continued
cyanocobalamin (vitamin B-12) [Vitamin B-12] 500 MCG tablet
500 mcg PO MOWEFR
methenamine hippurate 1 GRAM tablet
1 g PO BID
famotidine 20 MG tablet
20 mg PO HS
cholecalciferol (vitamin D3) [Vitamin D3] 25 MCG capsule
1,000 unit PO DAILY
Metamucil Fiber Singles 1 PACKET powder in packet
2 tsp PO DAILY
Eliquis 5 MG tablet
2.5 mg PO BID
therapeutic multivitamin Tablet
1 tab PO DAILY
potassium citrate 10 MEQ tablet extended release
10 meq PO DAILY Qty: 0 0RF
Discontinued
hydrochlorothiazide 25 MG tablet
12.5 mg PO DAILY
metoprolol succinate 25 MG tablet extended release 24 hr
12.5 mg PO BID
atorvastatin [Lipitor] 20 mg Tablet
20 mg PO HS
Discharge Orders:
Discharge Patient (As Directed); Ordered 01/26/24
Ordered By: Andrei Vera
Discharge Date and Time
Discharge Date/Time: 01/26/24 10:44
Print Language: ALBANIAN
--- NOTE | 2024-01-26 10:16 | PTCARENOTE ---
Reviewed discharge instructions with patient. Denies questions at this time. Awaiting son to transport home.
[2024-01-26 10:32] LABS: TSH Reflex To Free T4 2.58 uIU/ml (0.47-4.68)
--- NOTE | 2024-01-26 12:19 | PN.CDI ---
CDI
- -
CDI:
Physician Documentation Request
Admit Date: 01/25/24 09:12
Dear Doctor Chuy,
Patient is admitted with new CHF.
H&P states pt has a history of 'brain meningioma', reports patient is on hospice.
Could you please further specify the brain meningioma:
Benign
Malignant
Atypical
history of only
Other
Use of terms such as suspected, likely, concern for, or probable (associated with a specific diagnosis that is being evaluated, monitored, or treated as if it exists) are acceptable and can be coded in the inpatient setting, when documented at the
time of discharge.
Thank you,
Evonne Rubalcava RN, BSN
CDI Specialist
tiger text
Please use your independent medical judgment in providing your response.
--- NOTE | 2024-01-26 13:02 | CM ---
Patient seen at bedside with physicians. Patient eager to go home as husbands status overnight in hospice uncertain. Patient son to transport home. Patient completed IMM and signed form placed on chart. Patient stated she has an advance directive
and did not understand why CM was asking. CM clarified it was due to consult. CM will continue to follow for discharge planning needs.
Plan; home with no needs at this time.
--- NOTE | 2024-01-29 10:09 | W.HF.CON ---
Heart Failure
- LV Function
Left ventricular function study result: LV Ejection fraction >/= 50%
Ejection Fraction Percentage: 50-55
- ARNI
Patient already on ARNI: No
Heart Failure ARNI Not Indicated: LV Ejection Fraction >/= 40%
- ACEI/ARB
Patient already on ACEI/ARB: No
Heart Failure ACEI/ARB Not Indicated: LV Ejection Fraction > 40%
- Beta Fernando
Patient already on Evidence Based Beta Fernando: Yes
- Mineralocorticord Receptor Antagonist
Patient already on MRA: No
Heart Failure MRA Not Indicated: LV Ejection Fraction > 40%
- SGLT-2 Inhibitor
Patient already on SGLT-2 Inhibitor: No
Heart Failure SGLT-2 Inhibitor Not Indicated: LV Ejection Fraction >40%
- Afib Anticoagulation
Patient already on Anticoagulation for Afib: Yes
- NYHA CHF Classification
NYHA CHF Classification Level: Class III - Symptoms w/ min exertion, interferes w/ nml daily activity
- ACC/AHA Stage
ACC/AHA Stage: Stage C: Symptomatic Heart Failure
== END 2024-01-26 10:44 | disposition home or self-care (01) | DRG 293 ==
LOC: 4 EAST ACU 09:12
PROVIDERS: Student in an Organized Health Care Education/Training Program; ADMITTING PHYSICIAN Internal Medicine; CONSULT PHYSICIAN Internal Medicine Cardiovascular Disease; EMERGENCY PHYSICIAN Emergency Medicine; FAMILY PHYSICIAN Family Medicine
DX: I50.31 Acute diastolic (congestive) heart failure (principal); K21.9 Gastro-esophageal reflux disease without esophagitis; N20.0 Calculus of kidney; I48.0 Paroxysmal atrial fibrillation; I08.1 Rheumatic disorders of both mitral and tricuspid valves; Z79.899 Other long term (current) drug therapy; Z86.73 Personal history of transient ischemic attack (TIA), and cerebral infarction without residual deficits; J47.9 Bronchiectasis, uncomplicated; Z86.011 Personal history of benign neoplasm of the brain; H53.40 Unspecified visual field defects; Z87.442 Personal history of urinary calculi; I44.7 Left bundle-branch block, unspecified; E78.00 Pure hypercholesterolemia, unspecified; Z66 Do not resuscitate; Z79.01 Long term (current) use of anticoagulants; K59.00 Constipation, unspecified; Z80.1 Family history of malignant neoplasm of trachea, bronchus and lung; Z88.1 Allergy status to other antibiotic agents; Z88.5 Allergy status to narcotic agent; Z95.0 Presence of cardiac pacemaker
CPT/HCPCS: 71046; 80048; 83880; 84443; 84484; 85025; 85027; 93005; 93306; 96374; 97116; 97161; 97166; 99285

== ENCOUNTER 2024-02-03 10:00 | Inpatient (IN) | payer MEDICARE, OTHER, SELFPAY ==
[2024-02-03] VITALS (9 sets, daily range): BP systolic 100–121; BP diastolic 63–85; BMI 21.6; BMI 20.8
--- NOTE | 2024-02-03 07:40 | ED.GENMED ---
History of Present Illness
<Opal Phan DO - Last Filed: 02/03/24 08:34>
General
Chief Complaint: Breathing Problem
Time Seen by Provider: 02/03/24 07:19
<Constance Baker MD, Resident - Last Filed: 02/03/24 08:54>
General
Source: patient
Exam Limitations: none
Nursing documentation reviewed up to this point in time: agreed with except
History of Present Illness
History of Present Illness:
83-year-old female with PMHx significant for SVT, A-fib, MR, LBBB, Medtronic Linq for A-fib monitoring placed on 05/28/2015, nephrolithiasis, bronchiectasis, hyperlipidemia, cardiac ablation for SVT in the past presents to the hospital for worsening
shortness of breath. She was recently in the hospital for fluid overload, and was discharged on 01/28. At the time of discharge she was weighing 121 pounds, patient started monitoring her weight and taking Lasix 20mg, her swelling progressed from
the level of ankles to the level of mid shins when she reached out to her cardiology on wideness today and her Lasix dose was doubled up. However patient continued to have shortness of breath worsening on exertion and started noticing orthopnea and
PND beginning Monday. Today she weighed 127 pounds and her swelling was up to her knees.
She denies having any chest pain, palpitations, dizziness, syncope or near syncopal episodes, fever, chills, cough, sputum production.
If applicable-neuro sx onset
Onset of symptoms known: No
Time pt last seen normal is known: No
Past History
<Opal Phan DO - Last Filed: 02/03/24 08:34>
Past History
ED Past Medical History: Hypothyroidism and Other
ED Past Surgical History: Urological (Kidney stone surgery in the past)
Social History
Tobacco: Non-smoker
Alcohol: None
Drug: None
Personal:
Living: with family
Employment: Retired
Family History
Family History: Other (Noncontributory)
<Constance Baker MD, Resident - Last Filed: 02/03/24 08:54>
Past History
ED Past Medical History: Other (SVT, A-fib, MR, LBBB, Medtronic Linq for A-fib monitoring placed on 05/28/2015, nephrolithiasis, bronchiectasis, hyperlipidemia, cardiac ablation for SVT)
Phy Exam
<Constance Baker MD, Resident - Last Filed: 02/03/24 08:54>
General Physical Exam
General Presentation: mild distress
General Skin: warm
General Habitus: elderly and frail
General Mental: alert
General Hydration: appears well hydrated
Cardiovascular Exam
Cardiovascular Exam: no gallop, no murmur, normal peripheral pulses, irregularly irregular and JVD
Systolic Murmur: 2/6
Heart Sounds: normal
Pulmonary Exam
Pulmonary Exam: no respiratory distress, no rales, no rhonchi and other (Bilateral crackles.)
Gastrointestinal Exam
Gastrointestinal Exam: normal bowel sounds, non tender, soft and non distended
Neurological Exam
Neurological Exam: alert and no motor deficits
Musculoskeletal Exam
Musculoskeletal Exam: edema (2+ pitting edema up to the knees)
Scores
<Constance Baker MD, Resident - Last Filed: 02/03/24 08:54>
Heart Failure Risk
Heart Failure Risk Score: Yes
History of Stroke or TIA: No
History of intubation for respiratory distress: No
Heart rate on ED arrival >/= 110: No
SaO2 <90% on arrival on room air: No
HR >/=110 during 3min walk test (or too ill to perform test): Yes
ECG has acute ischemic changes: No
Urea >/=12mmol/L (BUN 33.6mg/dL): Yes
Serum CO2>/=35mmol/L: No
Troponin I or T elevated to [place] Level (0.4mg/dL): No
NT-proBNP >/=5,000ng/L (5,000pg/ml): No
HF Risk Score: 3
Admission Status: HIGH RISK 15.9% Consider SNF treatment or admission to hospital
Course
<Opal Phan, DO - Last Filed: 02/03/24 08:34>
Orders/Labs/Results
Orders:
Orders
02/03/24 07:17
ECG [Electrocardiogram (*1)] Urgent
Reason for Study: Shortness of Breath
EKG- Treatment ONCE
02/03/24 07:36
CR Chest - 2 Views Urgent
Comment:
Reason For Exam: SOB on exertion
02/03/24 07:46
Complete Blood Count/With Diff Urgent
Comprehensive Metabolic Panel Urgent
NT-proBNP Urgent
02/03/24 08:44
Furosemide [Lasix] 40 mg IV NOW STA
Abnormal Lab Results
02/03/24
07:46
MCHC 31.6 L g/dL
(33.0-37.0)
Absolute Monos (auto) 0.7 H 10^3/uL
(0.1-0.6)
Monocytes % 12.7 H %
(1.7-9.3)
BUN 30 H mg/dl
(7-17)
Glucose 116 H mg/dl
(70-99)
AST 51 H U/L
(14-36)
ALT 66 H U/L
(0-35)
02/03/24 07:46
02/03/24 07:46
Vital Signs
Initial and Last Documented VS:
Initial Vital Signs
Temp Pulse Resp BP Pulse Ox
98 F 94 22 119/85 94
02/03/24 07:13 02/03/24 07:13 02/03/24 07:13 02/03/24 07:13 02/03/24 07:13
Last Documented Vital Signs
Temp Pulse Resp BP Pulse Ox
98 F 92 14 118/76 97
02/03/24 07:13 02/03/24 07:38 02/03/24 07:38 02/03/24 07:37 02/03/24 07:33
<Constance Baker MD, Resident - Last Filed: 02/03/24 08:54>
Orders/Labs/Results
Orders:
Orders
02/03/24 07:17
ECG [Electrocardiogram (*1)] Urgent
Reason for Study: Shortness of Breath
EKG- Treatment ONCE
02/03/24 07:36
CR Chest - 2 Views Urgent
Comment:
Reason For Exam: SOB on exertion
02/03/24 07:46
Complete Blood Count/With Diff Urgent
Comprehensive Metabolic Panel Urgent
NT-proBNP Urgent
02/03/24 08:44
Furosemide [Lasix] 40 mg IV NOW STA
Abnormal Lab Results
02/03/24
07:46
MCHC 31.6 L g/dL
(33.0-37.0)
Absolute Monos (auto) 0.7 H 10^3/uL
(0.1-0.6)
Monocytes % 12.7 H %
(1.7-9.3)
BUN 30 H mg/dl
(7-17)
Glucose 116 H mg/dl
(70-99)
AST 51 H U/L
(14-36)
ALT 66 H U/L
(0-35)
02/03/24 07:46
02/03/24 07:46
Vital Signs
Initial and Last Documented VS:
Initial Vital Signs
Temp Pulse Resp BP Pulse Ox
98 F 94 22 119/85 94
02/03/24 07:13 02/03/24 07:13 02/03/24 07:13 02/03/24 07:13 02/03/24 07:13
Last Documented Vital Signs
Temp Pulse Resp BP Pulse Ox
98 F 92 14 118/76 97
02/03/24 07:13 02/03/24 07:38 02/03/24 07:38 02/03/24 07:37 02/03/24 07:33
<Constance Baker MD, Resident - Last Filed: 02/03/24 08:54>
MDM/Problems Addressed
Differential Diagnosis Includes:
Acute exacerbation of congestive heart failure, A-fib, pleural effusion, COPD,
Chronic conditions affecting care: HTN, Arrhythmia and Other (SVT, congestive heart failure, A-fib, bronchiectasis.)
Acute Exacerbation and/or Progression of Chronic Illness:
Of heart failure.
<Constance Baker MD, Resident - Last Filed: 02/03/24 08:54>
*Pulse Oximetry
Patient hypoxic: no
*EKG
Interpreted by ED Provider?: Yes
EKG Intrepretation Date: 02/03/24
EKG Intrepretation Time: 07:30
Interpretation: normal
Rate: normal
Rhythm: a-fib
Interval: normal QT interval
QRS Pattern: left bundle branch block
Ischemia: no ischemia
*Medical Staff Manager Interpretation
Rate: normal
Interpretation: abnormal
Rhythm: a-fib
*Critical Care Note
Total Time (30-74mins, 75-104mins- exclusive of procedures): Not Applicable
<Constance Baker MD, Resident - Last Filed: 02/03/24 08:54>
Update Note
Update Note:
Chest x-ray showed moderate pleural effusion, mild interstitial edema.
proBNP is elevated at 4040 higher than previous admission
Single dose of Lasix given to the patient
Updated patient regarding her hospital stay.
ED Attending Note
<Opal Phan DO - Last Filed: 02/03/24 08:34>
ED Attending Note
Patient seen and examined by attending physician: Yes
I performed the substantive portion of visit, reviewed & personally made and approve the management plan that is documented in note by myself or CHAYO.: Yes
I performed a history and physical exam of patient and discussed management with resident, I reviewed resident's note and agree with documented findings and plan of care.: Yes
ED Attending Note:
83-year-old female with history of A-fib, hyperlipidemia, CVA, new diagnosis of CHF presenting to the emergency department for increased shortness of breath, dyspnea on exertion, orthopnea. Patient recently admitted to the hospital for 01/24 to 01/25
for dyspnea, found to have a right. Patient discharged on 20 mg of Lasix daily. Reports since discharge, has gained about 7 pounds. 3 days ago, went to cardiology given her symptoms and Lasix was increased to 40 mg daily. She reports no
improvement of her symptoms, increasing lower extremity edema. She reports that she can no longer lie flat. Denies associated chest pain. Vital signs on arrival are normal.
On exam, patient is resting comfortably, no increased work of breathing. However, does have crackles at the bases, and 2+ pitting edema to the lower extremities. Concern for worsening pulmonary edema and congestive heart failure. Plan for
laboratory analysis and chest x-ray imaging, likely will need IV diuresis
08:30 -patient's BNP is worsening and chest x-ray shows worsening right-sided pleural effusion. For this reason plan for admission for IV diuresis. Patient agreeable to plan.
-
Portions of this chart may have been created with voice recognition software.� Occasional wrong word or��sound alike� substitutions may have occurred due to the inherent limitations of voice recognition software.
Discharge Plan
Departure
Patient Disposition: Admit
Date of Disposition: 02/03/24
Time of Disposition: 08:50
Admit to doctor: Henna Yan MD
Presentation/result/management discussed w/ accepting MD/DO: Hospitalist
Discharge Problem:
Acute exacerbation of CHF (congestive heart failure)
Prescriptions:
No Action
cyanocobalamin (vitamin B-12) [Vitamin B-12] 500 MCG tablet
500 mcg PO MOWEFR
methenamine hippurate 1 GRAM tablet
1 g PO BID
famotidine 20 MG tablet
20 mg PO HS
cholecalciferol (vitamin D3) [Vitamin D3] 25 MCG capsule
1,000 unit PO DAILY
Metamucil Fiber Singles 1 PACKET powder in packet
2 tsp PO DAILY
Eliquis 5 MG tablet
2.5 mg PO BID
therapeutic multivitamin Tablet
1 tab PO DAILY
atorvastatin 40 mg Tablet
40 mg PO QPM Qty: 30 0RF
metoprolol succinate 25 mg Tablet Extended Release 24 Hr
25 mg PO BID Qty: 30 0RF
potassium citrate 10 MEQ tablet extended release
10 meq PO DAILY Qty: 0 0RF
furosemide [Lasix] 20 mg tablet
20 mg PO DAILY Qty: 30 0RF
Interventions
Interventions:
*Risk Screen - Suicide Last Done: 02/03/24 07:13
*General Assessment Last Done: 02/03/24 07:13
*Neglect/Abuse Screening Last Done: 02/03/24 07:13
ED- Fall Risk Assessment Last Done: 02/03/24 07:33
*ED COVID-19 Vaccine History Last Done: 02/03/24 07:47
ED- Cardiac Assessment Last Done: 02/03/24 07:33
ED- Pulmonary Assessment Last Done: 02/03/24 07:33
Discharge Date and Time
Print Language: UKRAINIAN
[2024-02-03 08:00] LABS: % Basophils 1.2 % (0-2); % Eosinophils 3.8 % (0-6); % Immature Granulocytes 0.2 % (0-0.5); % Lymphocytes 22.5 % (20.5-51.1); % Monocytes 12.7 % (1.7-9.3); % Neutrophils 59.6 % (42.2-75.2); Absolute Basophils 0.1 10^3/uL (0-0.2); Absolute Eosinophils 0.2 10^3/uL (0-0.7); Absolute Lymphocytes 1.2 10^3/uL (1.2-3.4); Absolute Monocytes 0.7 10^3/uL (0.1-0.6); Absolute Neutrophils 3.1 10^3/uL (1.4-6.5); Hematocrit 44.6 % (37.0-47.0); Hemoglobin 14.1 g/dL (12.0-16.0); Mean Corp Hgb Conc. 31.6 g/dL (33.0-37.0); Mean Corpuscular Hgb 28.9 pg (27.0-31.0); Mean Corpuscular Volume 91.4 fL (81.0-99.0); Mean Platelet Volume 9.6 fL (7.4-10.4); Nucleated Red Blood Cells % 0 %; Platelet Count 228 10^3/uL (130-400); Red Blood Cell Count 4.88 10^6/uL (4.20-5.40); Red Cell Dist. Width 13.9 % (11.5-14.5); White Blood Cell Count 5.2 10^3/uL (4.8-10.8)
[2024-02-03 08:13] LABS: ALT (SGPT) 66 U/L (0-35); AST (SGOT) 51 U/L (14-36); Albumin 3.8 g/dl (3.5-5.0); Alkaline Phosphatase 112 U/L (38-126); Blood Urea Nitrogen 30 mg/dl (7-17); Calcium 9.4 mg/dl (8.4-10.2); Carbon Dioxide 29 mmol/L (22-30); Chloride 101 mmol/L (98-107); Estimated Creatinine Clearance 41 ml/min; Glucose 116 mg/dl (70-99); Potassium 4.4 mmol/L (3.5-5.1); Sodium 139 mmol/L (135-145); Total Bilirubin 1.1 mg/dl (0.2-1.3); Total Protein 6.4 g/dl (6.3-8.2); eGFR > 60.00
[2024-02-03 08:22] LABS: NT-proBNP 4040 pg/ml
[2024-02-03] MEDS: LASIX 40 MG IV ×2 (09:18→15:40)
--- NOTE | 2024-02-03 09:41 | HPS.HSE ---
Family Physician
-
Family Physician: Gisselle Juarez
Chief Complaint
-
Shortness of breath
History of Present Illness
83-year-old female with recent hospitalization for congestive heart failure, discharged 01/25, returns for worsening shortness of breath over the past few days with 7 pound weight gain. Also noticed increasing lower extremity edema.
Discharged on Lasix 20 mg once daily, dose was increased to 40 mg daily a couple days ago due to worsening shortness of breath. However, breathing did not improve.
Discharged on January 25 partly due to patient request to leave to take care of her who was dying on hospice. just recently.
Medical History
Past Medical History
Past Medical History: Reports Other
Additional Past Medical History:
Diastolic heart failure
Paroxysmal atrial fibrillation
Stroke
SVT
Valvular heart disease
Bronchiectasis
Hyperlipidemia
Nephrolithiasis
GERD
Meningioma
Past Surgical History: Reports Other
Additional Past Surgical History:
Cataract resection
Meningioma resection
Permanent pacemaker
Loop recorder
Social History
Tobacco: Non-smoker
Alcohol: None
Drug: None
Personal:
Employment: Not Employed
Family History
Family History: Not pertinent
Allergies / Home Medications
Allergies reflects when Allergies were last updated in [facility].
Home Medications with original date entered in [facility]
Allergy/Medication List:
Allergies
Allergy/AdvReac Type Severity Reaction Status Date / Time
meperidine HCl [From Demerol] Allergy Unknown Swelling Verified 02/03/24 07:13
levofloxacin [From Levaquin] Allergy dizziness Verified 02/03/24 07:13
Home Medications
cyanocobalamin (vitamin B-12) 500 mcg tablet (Vitamin B-12) 500 mcg PO MOWEFR Supplement 01/04/09
famotidine 20 mg tablet 20 mg PO HS Gastrointestinal Issue 02/11/19
methenamine hippurate 1 gram tablet 1 g PO BID Urinary Issue 02/11/19
cholecalciferol (vitamin D3) 25 mcg (1,000 unit) capsule (Vitamin D3) 1,000 unit PO DAILY Supplement 04/05/19
psyllium husk (aspartame) 3.4 gram oral powder packet (Metamucil Fiber Singles) 2 tsp PO DAILY Constipation 04/05/19
apixaban 5 mg tablet (Eliquis) 2.5 mg PO BID Blood Clot Prevention/Tx 09/20/20
therapeutic multivitamin 1 tab PO DAILY Supplement 01/25/24
atorvastatin 40 mg tablet 40 mg PO QPM High cholesterol #30 tabs 01/26/24
furosemide 20 mg tablet (Lasix) 20 mg PO DAILY Heart Failure #30 tabs 01/26/24
metoprolol succinate 25 mg tablet,extended release 24 hr 25 mg PO BID Arrhythmia #30 tabs 01/26/24
potassium citrate 10 mEq (1,080 mg) tablet,extended release 10 meq PO DAILY Supplement #0 tabs 01/26/24
Review of Systems
-
History Source: Patient
A 12 point ROS was completed and negative except as noted: Yes
Physical Exam
Vital Signs
Vital Signs
Temp Pulse Resp BP Pulse Ox
98 F 95 14 121/84 97
02/03/24 07:13 02/03/24 09:18 02/03/24 07:38 02/03/24 09:18 02/03/24 07:33
Physical Exam
General: Well Developed, Well Nourished, No Apparent Distress and Comfortable
HEENT: NormoCephalic, Anicteric and Moist mucous membranes
Respiratory: Clear
Cardiac: S1/S2 and Regular Rhythm
Breast: Deferred by me
GI: Soft, Non Tender and Non Distended
Genito-urinary: Deferred by me
Musculoskeletal: No Clubbing, No Cyanosis, Edema, Left Lower Extremity and Edema, Right Lower Extremity
Skin: Warm and Dry
Neuro: AO x 3
Hematologic/Lymphatic: No Lymphadenopathy
Psych: Calm
Laboratory Results
-
02/03/24 07:46
02/03/24 07:46
Laboratory Results
Total Bilirubin 1.1 mg/dl (0.2-1.3) 02/03/24 07:46
AST 51 U/L (14-36) H 02/03/24 07:46
ALT 66 U/L (0-35) H 02/03/24 07:46
Alkaline Phosphatase 112 U/L (38-126) 02/03/24 07:46
Impression/Plan
-
Acute on chronic heart failure with preserved EF -admit to IVU. Continue IV Lasix. Consult cardiology. 7 pound weight gain, BNP 4040.
Last echo was 01/25/2024, LVEF 50 to 55%, indeterminate diastolic function, moderate to severe MR, moderate to severe TR. Left to right shunt across the interatrial septum suggestive of ASD/PFO.
Bilateral pleural effusions -right greater than left. Likely due to heart failure. Has never had thoracentesis. May need thoracentesis on Monday if not improved with diuresis.
Elevated transaminases -likely due to heart failure induced passive congestion. Monitor for now.
Paroxysmal atrial fibrillation -continue Eliquis, metoprolol.
Hyperlipidemia -atorvastatin.
history of stroke -left-sided visual deficit, 2020.
Chronic bronchiectasis -followed by pulmonary. No recent exacerbations. Did have pneumonia and COVID in October. Required brief hospitalization.
History of meningioma -resected 2021.
History of nephrolithiasis
GERD
DNR -confirmed with patient.
--- NOTE | 2024-02-03 10:02 | CON.CAR ---
Addendum entered and electronically signed by José Miguel Ramirez MD 02/03/24 10:29:
I saw and examined the patient.
The [employer] or PA's note was reviewed and I agree with the note.
Comment: General: Well developed, well nourished in NAD.
Neck: Supple, no JVD, HJR, carotids +2 B/L, no bruits bilaterally.
Heart: Non displaced PMI, RRR, no murmurs, No S3, S4, no rubs.
Lungs: Clear to auscultation bilaterally, no wheeze, rhonchi, rubs bilaterally,
normal expiratory phase.
Extremities: No clubbing, cyanosis or edema bilaterally.
Neuro: Grossly nonfocal, awake, alert and oriented x3.
Radha has a history of bronchiectasis, CVA with left visual field deficit, resection of right occipital meningioma in July 2021, SVT versus atrial tach ablation at [place] in 1998, PAF with historically low burden of 103% A-fib. Of note her
passed recently. She was admitted 1 week ago with CHF and A-fib. She elected for rate control at that time. She was treated for heart failure as well. She presents with worsening shortness of breath and A-fib. She is admitted with CHF.
Will treat with IV Lasix. Will start amiodarone if remains in A-fib we will do cardioversion on 02/05/2024. May need treatment of MR at some point.
Original Note:
Consultation
Consultation Request
Date/Time Consultation Performed: 02/03/24
Requesting Provider: Dr. Nguyen
Performing Provider: Eva Underwood PA-C for Dr. Ramirez
Reason for Consultation: CHF
Medical History
-
Chief Complaint: SOB
History of Present Illness:
Patient is an 83-year-old female with past medical history of bronchiectasis, history of stroke with left visual field deficit, resection of right occipital meningioma 07/2021 at [facility], history of SVT versus A. tach
ablation at [facility] in 1998, PAF with prior loop implants (now nonfunctional�last interrogation from 09/11/2022 with 0.6% A-fib burden) with historically low burden of typically 1 to 3% who had recent admission to [facility] for A-fib and heart
failure 01/24 - 01/26/2024. She was diuresed and her Toprol dose was increased. She was eager for discharge as her was on hospice, and he did unfortunately pass away on 01/26. She reports they had the 02/01/2024. She reports she
was seen in the office 01/30 and had complained of some worsening shortness of breath and her Lasix was increased from 20 mg daily to 40 mg daily, however does not feel like she improved with this. Last night she states she had difficulty sleeping
due to shortness of breath and so came to the emergency room for further evaluation and treatment. proBNP higher than last admission at 4000. She remains in A-fib with heart rates around to 100. She had been planned for outpatient cardioversion
02/14/2024. She denies missed doses of Eliquis.
PMH:
Admission to 01/24 - 01/26/2024 for CHF, A-fib
PAF, historically burdens of 1-3% by loop recorder
Chronic OAC with eliquis
history of SVT vs atach ablation at [facility] 1998
history of CVA with L visual field deficit
resection of right occipital meningioma 07/2021 at [facility]
bronchiectasis
History of kidney stones
HLD
GERD
Past Medical History
Past Medical History: Other (in HPI)
Social History
Tobacco: Non-Smoker
Alcohol: None
Personal:
Employment: Retired
Family History
Family History: Reviewed & Not Pertinent
Allergies / Home Medications
Allergy/AdvReac Type Severity Reaction Status Date / Time
meperidine HCl [From Demerol] Allergy Unknown Swelling Verified 02/03/24 07:13
levofloxacin [From Levaquin] Allergy dizziness Verified 02/03/24 07:13
�Medication �Instructions �Recorded �Confirmed �Type
cyanocobalamin (vitamin B-12) 500 500 mcg PO MOWEFR Supplement 01/04/09 02/03/24 History
mcg tablet (Vitamin B-12)
famotidine 20 mg tablet 20 mg PO HS Gastrointestinal Issue 02/11/19 02/03/24 History
methenamine hippurate 1 gram tablet 1 g PO BID Urinary Issue 02/11/19 02/03/24 History
cholecalciferol (vitamin D3) 25 1,000 unit PO DAILY Supplement 04/05/19 02/03/24 History
mcg (1,000 unit) capsule (Vitamin
D3)
psyllium husk (aspartame) 3.4 gram 2 tsp PO DAILY Constipation 04/05/19 02/03/24 History
oral powder packet (Metamucil
Fiber Singles)
apixaban 5 mg tablet (Eliquis) 2.5 mg PO BID Blood Clot 09/20/20 02/03/24 History
Prevention/Tx
therapeutic multivitamin 1 tab PO DAILY Supplement 01/25/24 02/03/24 History
atorvastatin 40 mg tablet 40 mg PO QPM High cholesterol #30 01/26/24 02/03/24 Rx
tabs
metoprolol succinate 25 mg 25 mg PO BID Arrhythmia #30 tabs 01/26/24 02/03/24 Rx
tablet,extended release 24 hr
potassium citrate 10 mEq (1,080 10 meq PO DAILY Supplement #0 tabs 01/26/24 02/03/24 Rx
mg) tablet,extended release
furosemide 20 mg tablet (Lasix) 40 mg PO DAILY Heart Failure 02/03/24 02/03/24 History
Review of Systems
-
History Source: Patient
All other systems: Negative unless noted
Physical Exam
Vital Signs
Temp Pulse Resp BP Pulse Ox
98 F 95 14 121/84 97
02/03/24 07:13 02/03/24 09:18 02/03/24 07:38 02/03/24 09:18 02/03/24 07:33
Lab Results
02/03/24 07:46
02/03/24 07:46
[id number] Pept 4040 pg/ml 02/03/24 07:46
Physical Exam
General: No Apparent Distress and Comfortable
HEENT: Normocephalic, Anicteric and Moist Mucous Membranes
Respiratory: Crackles and Non Labored Respirations
Cardiac: S1/S2 and Irregular Rhythm
GI: Soft, Non Tender, Non Distended and Normal Bowel Sounds
Musculoskeletal: No Clubbing, No Cyanosis and No Edema
Skin: Warm and Dry
Neuro: AO x 3
Impression / Plan
-
Primary Smelter Operator: Dr. Valerio Allison
Assessment:
Presentation with SOB
Acute on chronic HFpEF
PAF, historically burdens of 1-3% by loop recorder
Recent admission to 01/24-01/26/24 for CHF, afib
mod to severe MR
Chronic OAC with eliquis
history of SVT vs atach ablation at [facility] 1998
history of CVA with L visual field deficit 2020
resection of right occipital meningioma 07/2021 at [facility]
bronchiectasis
History of kidney stones
HLD
GERD
ECHO 01/2015 at [facility]: EF 50%, abnormal septal motion, basal to mid anterolateral wall poorly visualized, mild MAC, mild MR, mild to moderate AR, mild TR, mild PI, PASP 25 mmHg
ECHO 01/25/24: EF 50 to 55%, abnormal septal motion consistent with left bundle branch block, mild concentric LVH, severely dilated bilateral atria, moderate to severe MR, mild , mild AR, moderate to severe TR, PAP 30 to 35 mmHg, left to right
shunt suggestive of ASD/PFO
Plan:
-She had recent admission to [facility] 01/24 - 01/26/2024 for CHF and increased burden of A-fib. She was diuresed and her Toprol dose was increased. She was eager to leave the hospital as her was on hospice, and he did
unfortunately pass on 01/27/2024. Since discharge, she has noted worsening shortness of breath despite increasing oral Lasix dose.
-proBNP 4000. Chest x-ray with small bilateral pleural effusions consistent with acute heart failure. Will diurese with IV Lasix. As she has not responded well to oral Lasix at home, may consider transition to p.o. torsemide for discharge when
ready
-Echo last admission as above, will not repeat at this time
-She remains in atrial fibrillation, overall heart rates around to 100 on review of telemetry in ER. Previously burden has been approximately 1-3% and patient is asymptomatic of A-fib. We discussed given more persistent nature of A-fib recently
(likely in setting of recent stress), and heart failure, to add antiarrhythmic drug therapy. Will place on amiodarone 200 mg 3 times daily. Continue Toprol. Follow heart rates
-She has no missed doses of Eliquis. She did not take a.m. meds today, will order Eliquis dose for now. Will plan for cardioversion on Monday
-Of note, also noted to have moderate to severe MR by echo 01/25/2024. Would consider for TEMO to evaluate MR further, possibly at time of cardioversion on Monday. May consider evaluation for MitraClip, however unclear if she would be agreeable to
additional procedures
Data Reviewed
-
EKG: Tracing Personally Visualized and interpreted
Radiology: Report Reviewed by me
Medical Tests (Nuc Med, Echo etc): Report Reviewed by me
Labs: Labs Reviewed by me
Old Records: Reviewed
[2024-02-03] MEDS: ELIQUIS 2.5 MG PO ×2 (10:45→19:20)
[2024-02-03] MEDS: ELIQUIS PO (13:00)
[2024-02-03] MEDS: UROCIT-K 10 MEQ PO (13:01)
[2024-02-03] MEDS: TOPROL XL 25 MG PO ×2 (13:02→19:23)
[2024-02-03] MEDS: PACERONE 200 MG PO ×2 (15:40→22:19)
--- NOTE | 2024-02-03 15:58 | PTCARENOTE ---
Pt received from the ED at 1225. Pt on room air, sat 98%. Denies any chest pain, sob or palpitations. Pt oob independently. Voiding clear yellow urine in the BR.
[2024-02-03] MEDS: LIPITOR 40 MG PO (19:19)
--- NOTE | 2024-02-03 20:46 | PTCARENOTE ---
Received patient at change of shift. Afib on the monitor, HR in the 90s, VSS. DNR bracelet in place. Educated pt on plan of care, pt verbalized understanding. No complaints from pt at this time, call webb within reach.
[2024-02-04] VITALS (7 sets, daily range): BP systolic 98–121; BP diastolic 63–75; BMI 20.6
[2024-02-04 05:19] LABS: ALT (SGPT) 56 U/L (0-35); AST (SGOT) 39 U/L (14-36); Albumin 3.2 g/dl (3.5-5.0); Alkaline Phosphatase 106 U/L (38-126); Blood Urea Nitrogen 29 mg/dl (7-17); Calcium 8.6 mg/dl (8.4-10.2); Carbon Dioxide 28 mmol/L (22-30); Chloride 102 mmol/L (98-107); Estimated Creatinine Clearance 46 ml/min; Glucose 93 mg/dl (70-99); Potassium 3.7 mmol/L (3.5-5.1); Sodium 141 mmol/L (135-145); Total Bilirubin 1.1 mg/dl (0.2-1.3); Total Protein 5.9 g/dl (6.3-8.2); eGFR > 60.00
[2024-02-04] MEDS: UROCIT-K 10 MEQ PO (07:50)
[2024-02-04] MEDS: LASIX 40 MG IV ×2 (07:50→16:42)
[2024-02-04] MEDS: VITAMIN B-12 500 MCG PO (07:51)
[2024-02-04] MEDS: TOPROL XL 25 MG PO ×2 (07:51→20:49)
[2024-02-04] MEDS: ELIQUIS 2.5 MG PO ×2 (07:51→20:48)
[2024-02-04] MEDS: PACERONE 200 MG PO ×3 (07:51→21:35)
--- NOTE | 2024-02-04 08:24 | W.PN.HOSP.TC ---
Today's Communication/Plan
-
Continue current care
Assessment / Plan
Assessment / Plan
Gen-AAOx3, NAD
HEENT-NC, AT, anicteric, clear oral mm
Neck-supple
CV-reg, no M, +S1/S2
Lungs-clear B/L
Abd-soft, NT, ND
Ext-left greater than right lower extremity edema
Musculoskeletal-no cyanosis, clubbing
Skin-warm and dry
Neuro-grossly non-focal
Psych-calm, cooperative
Acute on chronic heart failure with preserved EF -clinically improving, shortness of breath improving. Continue IV Lasix. 7 pound weight gain, BNP 4040. Cardiology following.
Last echo was 01/25/2024, LVEF 50 to 55%, indeterminate diastolic function, moderate to severe MR, moderate to severe TR. Left to right shunt across the interatrial septum suggestive of ASD/PFO.
Bilateral pleural effusions -right greater than left. Likely due to heart failure. Has never had thoracentesis. May need thoracentesis if not improved with diuresis.
Elevated transaminases -likely due to heart failure induced passive congestion. Monitor for now.
Paroxysmal atrial fibrillation -continue Eliquis, metoprolol. Amiodarone started by cardiology. On exam today she sounds in a regular rhythm, EKG earlier this morning showed atrial fibrillation. Cardiology planning on cardioversion Monday if
needed. Recent TSH 2.58.
Hyperlipidemia -atorvastatin.
history of stroke -left-sided visual deficit, 2020.
Chronic bronchiectasis -followed by pulmonary. No recent exacerbations. Did have pneumonia and COVID in October. Required brief hospitalization.
History of meningioma -resected 2021.
History of nephrolithiasis
GERD
DNR -confirmed with patient.
Anticipated Discharge: > 48 hours
Subjective/Interval History
-
Date of Service: February 04, 2024
Patient seen and examined. No complaints.
Objective Data
-
Labs:
Laboratory Results
02/04/24
04:12
Sodium 141
Potassium 3.7
Chloride 102
Carbon Dioxide 28
BUN 29 H
Creatinine 0.8
Glucose 93
Calcium 8.6
Total Bilirubin 1.1
AST 39 H
ALT 56 H
Alkaline Phosphatase 106
Vital Signs:
Vital Signs
Temp Pulse Resp BP Pulse Ox
98.5 F 82 20 121/75 94
02/04/24 07:13 02/04/24 07:15 02/04/24 07:13 02/04/24 07:15 02/04/24 07:15
I&O
02/03/24 02/04/24 02/05/24
06:59 06:59 06:59
Output Total 1300 / 1300 200 / 200
Balance -1300 / -1300 -200 / -200
Review of Systems
-
History Source: Patient
All other systems: Reviewed and negative
[2024-02-04] MEDS: KCL 20 MEQ PO (08:40)
--- NOTE | 2024-02-04 10:12 | W.PN.CARDCBS ---
Today's Communication / Plan
-
Continue IV Lasix
For cardioversion on 02/04
Follow LFTs on amiodarone
Impression / Plan
-
Primary Face Cleaner: Dr. Valerio Allison
Assessment:
Presentation with SOB
Acute on chronic HFpEF
PAF, historically burdens of 1-3% by loop recorder
Recent admission to 01/24-01/26/24 for CHF, afib
mod to severe MR
Chronic OAC with eliquis
history of SVT vs atach ablation at [facility] 1998
history of CVA with L visual field deficit 2020
resection of right occipital meningioma 07/2021 at [facility]
bronchiectasis
History of kidney stones
HLD
GERD
ECHO 01/2015 at [facility]: EF 50%, abnormal septal motion, basal to mid anterolateral wall poorly visualized, mild MAC, mild MR, mild to moderate AR, mild TR, mild PI, PASP 25 mmHg
ECHO 01/25/24: EF 50 to 55%, abnormal septal motion consistent with left bundle branch block, mild concentric LVH, severely dilated bilateral atria, moderate to severe MR, mild , mild AR, moderate to severe TR, PAP 30 to 35 mmHg, left to right
shunt suggestive of ASD/PFO
Plan:
Appears to be improved
Remains on room air
Renal function stable
Continue IV Lasix and may consider change to oral Lasix was on 02/04
Remains in atrial fibrillation. Amiodarone was started on 02/02. Will need to follow-up LFTs on amiodarone
Will arrange for cardioversion on 02/04. She has no missed doses of Eliquis.
She had moderate to severe MR by echo 01/25/2024. May consider evaluation for MitraClip, however unclear if she would be agreeable to additional procedures
PREADMIT DATA
-She had recent admission to [facility] 01/24 - 01/26/2024 for CHF and increased burden of A-fib. She was diuresed and her Toprol dose was increased. She was eager to leave the hospital as her was on hospice, and he did
unfortunately pass on 01/27/2024. Since discharge, she has noted worsening shortness of breath despite increasing oral Lasix dose.
Progress Note - Face Cleaner
Subjective
Date of Service: February 04, 2024
No complaints
Objective
Labs:
02/03/24 07:46
02/04/24 04:12
Labs
Hgb 14.1 g/dL (12.0-16.0) 02/03/24 07:46
Hct 44.6 % (37.0-47.0) 02/03/24 07:46
Plt Count 228 10^3/uL (130-400) 02/03/24 07:46
Sodium 141 mmol/L (135-145) 02/04/24 04:12
Potassium 3.7 mmol/L (3.5-5.1) 02/04/24 04:12
BUN 29 mg/dl (7-17) H 02/04/24 04:12
Creatinine 0.8 mg/dL (0.6-1.0) 02/04/24 04:12
Glucose 93 mg/dl (70-99) 02/04/24 04:12
Vital Signs and I&O:
Vital Signs
Temp Pulse Resp BP Pulse Ox
98.5 F 82 20 121/75 94
02/04/24 07:13 02/04/24 07:15 02/04/24 07:13 02/04/24 07:15 02/04/24 07:50
Vital Signs
Temp Pulse Resp BP Pulse Ox
98.5 F 82 20 121/75 94
02/04/24 07:13 02/04/24 07:15 02/04/24 07:13 02/04/24 07:15 02/04/24 07:50
Intake & Output
1102/03/24 02/04/24 02/05/24
06:59 06:59 06:59 06:59
Intake Total 600 / 600
Output Total 1300 / 1300 450 / 450
Balance -1300 / -1300 150 / 150
Physical Exam
Physical Exam
General: Well developed, well nourished in NAD.
Neck: Supple, no JVD, HJR, carotids +2 B/L, no bruits bilaterally.
Heart: Non displaced PMI, irregular, no murmurs, No S3, S4, no rubs.
Lungs: Scattered rales
Extremities: No clubbing, cyanosis or edema bilaterally.
Neuro: Grossly nonfocal, awake, alert and oriented x3.
[2024-02-04] MEDS: FLUSH (NSS) 2 FLUSH IV (16:43)
[2024-02-04] MEDS: LIPITOR 40 MG PO (17:53)
--- NOTE | 2024-02-04 18:20 | PTCARENOTE ---
The patient is aaox3, vital signs remains stable. Afib has been noted on the monitor. She has had a non-productive cough with frequent throat clearing all shift. She has had no complaint of SOB. She has been ambulatory in her room or oob in the
chair throughout the shift.
[2024-02-05] VITALS (10 sets, daily range): BP systolic 96–114; BP diastolic 57–70; BMI 20.4
[2024-02-05 04:52] LABS: ALT (SGPT) 53 U/L (0-35); AST (SGOT) 33 U/L (14-36); Albumin 3.2 g/dl (3.5-5.0); Alkaline Phosphatase 108 U/L (38-126); Blood Urea Nitrogen 24 mg/dl (7-17); Calcium 8.6 mg/dl (8.4-10.2); Carbon Dioxide 28 mmol/L (22-30); Chloride 102 mmol/L (98-107); Estimated Creatinine Clearance 52 ml/min; Glucose 95 mg/dl (70-99); Potassium 3.6 mmol/L (3.5-5.1); Sodium 141 mmol/L (135-145); Total Bilirubin 1.2 mg/dl (0.2-1.3); Total Protein 5.9 g/dl (6.3-8.2); eGFR > 60.00
--- NOTE | 2024-02-05 06:14 | PTCARENOTE ---
Pt AFib on monitor VSS, independent in the room. Denies pain or SOB. NPO for TEMO/CV
--- NOTE | 2024-02-05 08:24 | W.PN.CARDCBS ---
Addendum entered and electronically signed by Darnell Bolanos MD 02/05/24 11:09:
83-year-old woman with remote SVT or A. tach ablation, PAF, history of stroke and bronchiectasis, admitted January 24 with A-fib and heart failure. Discharged in A-fib with rate control as in hospice on January 26. Readmitted
with heart failure and A-fib, now status post cardioversion
PMH: As above, chronic HFpEF, rare PAF, moderate to severe MR, SVT or A. 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
Allergies: Parroting and Levaquin
Outpatient meds: Atorvastatin, Eliquis, famotidine, furosemide, methenamine, metoprolol ER 25 twice daily, potassium citrate\\
Current meds: Apixaban 2.5 twice daily, atorvastatin 40 a day, vitamin B12, metoprolol ER 25 twice daily, potassium citrate, furosemide 40 IV twice daily, amiodarone 200 mg 3 times daily, potassium 20 mill equivalents daily
ROS negative except as above
110/70, pulse 79, respiratory 20, afebrile, sats 95%, Weight is 55.6 kg, largely unchanged, intake and output -0.8 L
EKG this morning, sinus bradycardia, first-degree AV block, PACs, left bundle branch block, left axis deviation
Echo January 2024: EF 50-55%, septal contraction abnormality, mild LVH, moderate to severe MR, mild aortic stenosis, moderate to severe TR, ASD/PFO
BUN and creatinine 24 and 0.7, potassium 3.6, proBNP was 4040 was 3100 prior
Impression:
Acute on chronic HFpEF
PAF, historically burdens of 1-3% by loop recorder
Recent admission to 01/24-01/26/24 for CHF, afib
mod to severe MR
Chronic OAC with eliquis
history of SVT vs atach ablation at [facility] 1998
history of CVA with L visual field deficit 2020
resection of right occipital meningioma 07/2021 at [facility]
bronchiectasis
History of kidney stones
HLD
GERD
Plan:
She appears improved status post cardioversion. Was initially bradycardic, heart rate now better, may need to make adjustments in metoprolol. Would keep overnight in hospital.
Continue oral amiodarone. Continue Eliquis.
Likely switch to oral furosemide in a.m.
For now, will hold off on consideration of Farxiga/Jardiance. If recurrences, we will need to reconsider, consider spironolactone as well.
Hopefully for discharge in a.m.
Original Note:
Today's Communication / Plan
-
Continue IV lasix, may be able to transition to PO in the next 24 hours
For CV today
Continue amiodarone, toprol
Continue Eliquis 5mg BID
Follow up arranged
Impression / Plan
-
Primary Data Abstractor: Dr. Valerio Allison
Assessment:
Presentation with SOB
Acute on chronic HFpEF
PAF, historically burdens of 1-3% by loop recorder
Recent admission to 01/24-01/26/24 for CHF, afib
mod to severe MR
Chronic OAC with eliquis
history of SVT vs atach ablation at [facility] 1998
history of CVA with L visual field deficit 2020
resection of right occipital meningioma 07/2021 at [facility]
bronchiectasis
History of kidney stones
HLD
GERD
ECHO 01/2015 at [facility]: EF 50%, abnormal septal motion, basal to mid anterolateral wall poorly visualized, mild MAC, mild MR, mild to moderate AR, mild TR, mild PI, PASP 25 mmHg
ECHO 01/25/24: EF 50 to 55%, abnormal septal motion consistent with left bundle branch block, mild concentric LVH, severely dilated bilateral atria, moderate to severe MR, mild , mild AR, moderate to severe TR, PAP 30 to 35 mmHg, left to right
shunt suggestive of ASD/PFO
Plan:
-Presented with worsening SOB despite increasing oral lasix dose as OP. Admitted with acute heart failure exacerbation.
-Continue IV lasix 40mg BID for now. Breathing improving. Still w/ LE edema. May be able to transition to PO in AM. Of note, she did not respond well to PO lasix prior to admission, may consider discharging on torsemide.
-Weight down to 122 lbs 02/04. Creat stable at 0.7.
-Remains in rate controlled atrial fibrillation on review of telemetry. For CV today, 02/04.
-New to amiodarone, started 02/02. Continue Eliquis 5mg BID.
-Echo 01/24 with EF 50-55%, moderate to severe MR. No need to repeat at this time. Could consider eventual workup for Mitraclip if she is agreeable.
-Cardiology follow up arranged.
HPI: Patient is an 83-year-old female with past medical history of bronchiectasis, history of stroke with left visual field deficit, resection of right occipital meningioma 07/2021 at [facility], history of SVT versus A.
tach ablation at [facility] in 1998, PAF with prior loop implants (now nonfunctional�last interrogation from 09/11/2022 with 0.6% A-fib burden) with historically low burden of typically 1 to 3% who had recent admission to [facility] for A-fib and
heart failure 01/24 - 01/26/2024. She was diuresed and her Toprol dose was increased. She was eager for discharge as her was on hospice, and he did unfortunately pass away on 01/26. She reports they had the 02/01/2024. She reports
she was seen in the office 01/30 and had complained of some worsening shortness of breath and her Lasix was increased from 20 mg daily to 40 mg daily, however does not feel like she improved with this. Last night she states she had difficulty
sleeping due to shortness of breath and so came to the emergency room for further evaluation and treatment. proBNP higher than last admission at 4000. She remains in A-fib with heart rates around to 100. She had been planned for outpatient
cardioversion 02/14/2024. She denies missed doses of Eliquis.
Progress Note - Data Abstractor
Subjective
Date of Service: February 05, 2024
Breathing improved. Still w/ LE edema.
Objective
Labs:
02/03/24 07:46
02/05/24 03:31
Labs
Hgb 14.1 g/dL (12.0-16.0) 02/03/24 07:46
Hct 44.6 % (37.0-47.0) 02/03/24 07:46
Plt Count 228 10^3/uL (130-400) 02/03/24 07:46
Sodium 141 mmol/L (135-145) 02/05/24 03:31
Potassium 3.6 mmol/L (3.5-5.1) 02/05/24 03:31
BUN 24 mg/dl (7-17) H 02/05/24 03:31
Creatinine 0.7 mg/dL (0.6-1.0) 02/05/24 03:31
Glucose 95 mg/dl (70-99) 02/05/24 03:31
Vital Signs and I&O:
Vital Signs
Temp Pulse Resp BP Pulse Ox
98.1 F 76 20 114/68 95
02/05/24 06:56 02/05/24 04:00 02/05/24 06:56 02/05/24 03:24 02/05/24 06:56
Vital Signs
Temp Pulse Resp BP Pulse Ox
98.1 F 76 20 114/68 95
02/05/24 06:56 02/05/24 04:00 02/05/24 06:56 02/05/24 03:24 02/05/24 06:56
Intake & Output
02/03/24 02/04/24 02/05/24 02/06/24
06:59 06:59 06:59 06:59
Intake Total 940 / 940
Output Total 1300 / 1300 1575 / 1575
Balance -1300 / -1300 -635 / -635
Physical Exam
Physical Exam
GEN: No distress, awake, alert, oriented x3
HEENT: supple, anicteric, mmm
LUNGS: CTA b/l, no wheezes/rales
CV: Irregularly irregular, S1/S2, 2/6 syst murmur
EXT: No clubbing or cyanosis. +1 edema b/l LE L>R
NEURO: Gross non-focal
SKIN: Warm, dry, no rash
[2024-02-05] MEDS: ELIQUIS 2.5 MG PO ×2 (09:17→19:46)
--- NOTE | 2024-02-05 10:02 | ITS.CL.CARDI ---
Special Events Director - Cardioversion
Cardioversion
Procedure Report:
Date of Procedure: 02/05/2024.
Procedure: Cardioversion.
Indication: Symptomatic atrial fibrillation.
Performing Physician: Kait Mcneil MD
Technique: The patient was brought to the holding area. Signed informed consent was obtained. A time out was called and performed. The patient was sedated by a member of the anesthesia service. Anticoagulation status was reviewed and was
appropriate. R-2 pads were placed anteriorly and posteriorly. A 200 J synchronized biphasic shock restored normal sinus rhythm without significant bradycardia. There were no complications.
Conclusion: Uncomplicated cardioversion from atrial fibrillation to sinus rhythmWith frequent PACs
Recommendation: Routine post cardioversion care. Continue fci anticoagulation.
cc: Darnell Bolanos
[2024-02-05] MEDS: KCL 20 MEQ PO (10:47)
[2024-02-05] MEDS: PACERONE 200 MG PO ×3 (10:49→22:41)
[2024-02-05] MEDS: VITAMIN B-12 500 MCG PO (10:49)
[2024-02-05] MEDS: UROCIT-K 10 MEQ PO (10:49)
[2024-02-05] MEDS: TOPROL XL 25 MG PO ×2 (10:50→19:45)
[2024-02-05] MEDS: LASIX 40 MG IV ×2 (10:50→16:20)
--- NOTE | 2024-02-05 11:08 | PTCARENOTE ---
Received pt post CV. Pt AAO x3, VSS. Pt noted to be in NSR w/ PAC's. Orders noted.
--- NOTE | 2024-02-05 13:04 | CM ---
Chart reviewed. Patient is independent of ADLS, lives alone in an apartment in [facility], elevator access, 0 DME. Patient recently lost her and is interested in VN. Patient is part of the [facility]. Referral sent to [facility]. Plan is for the patient to return home with VN. CM to follow
--- NOTE | 2024-02-05 13:34 | W.PN.HOSP.TC ---
Today's Communication/Plan
-
Monitor vital signs
see plan
Continue with amiodarone
Continue with IV Lasix
Successful cardioversion today
Assessment / Plan
Assessment / Plan
Gen-AAOx3, NAD
HEENT-NC, AT, anicteric, clear oral mm
Neck-supple
CV-reg, no M, +S1/S2
Lungs-clear B/L
Abd-soft, NT, ND
Ext-left greater than right lower extremity edema
Neuro-grossly non-focal
Psych-calm, cooperative
Acute on chronic heart failure with preserved EF -clinically improving, shortness of breath improving. Continue IV Lasix. 7 pound weight gain, BNP 4040. Cardiology following.
Last echo was 01/25/2024, LVEF 50 to 55%, indeterminate diastolic function, moderate to severe MR, moderate to severe TR. Left to right shunt across the interatrial septum suggestive of ASD/PFO.
Bilateral pleural effusions -right greater than left. Likely due to heart failure. Has never had thoracentesis. May need thoracentesis if not improved with diuresis.
Elevated transaminases -likely due to heart failure induced passive congestion. Monitor for now.
Paroxysmal atrial fibrillation -continue Eliquis, metoprolol. Amiodarone started by cardiology. Status post cardioversion 02/04, now in normal sinus rhythm. Recent TSH 2.58.
Hyperlipidemia -atorvastatin.
history of stroke -left-sided visual deficit, 2020.
Chronic bronchiectasis -followed by pulmonary. No recent exacerbations. Did have pneumonia and COVID in October. Required brief hospitalization.
History of meningioma -resected 2021.
History of nephrolithiasis
GERD
DNR -confirmed with patient.
I spent a total of 52 minutes with the patient or on the floor. More than 50% of this time involved counseling and coordination of care.
Anticipated Discharge: 24 - 48 hours
Subjective/Interval History
-
Date of Service: February 05, 2024
denies pain
Objective Data
-
Labs:
Laboratory Results
02/05/24
03:31
Sodium 141
Potassium 3.6
Chloride 102
Carbon Dioxide 28
BUN 24 H
Creatinine 0.7
Glucose 95
Calcium 8.6
Total Bilirubin 1.2
AST 33
ALT 53 H
Alkaline Phosphatase 108
Vital Signs:
Vital Signs
Temp Pulse Resp BP Pulse Ox
97.8 F 63 20 108/63 94
02/05/24 11:19 02/05/24 10:49 02/05/24 11:19 02/05/24 10:49 02/05/24 11:19
I&O
02/04/24 02/05/24 02/06/24
06:59 06:59 06:59
Intake Total 940 / 940 240 / 240
Output Total 1300 / 1300 1575 / 1575 500 / 500
Balance -1300 / -1300 -635 / -635 -260 / -260
[2024-02-05] MEDS: LIPITOR 40 MG PO (16:31)
--- NOTE | 2024-02-05 23:18 | PTCARENOTE ---
Rec'd pt at change of shift. Pt on TELE monitor in NSR with VSS (see flowchart) and AAO*3. Pt denies any pain or discomfort. Pt updated and agreeable to POC. Pt ambulating in room safely without assistance. Pt now resting with call webb in
reach
[2024-02-06 02:28] VITALS: BP 114/66
[2024-02-06 04:05] LABS: ALT (SGPT) 54 U/L (0-35); AST (SGOT) 37 U/L (14-36); Albumin 3.5 g/dl (3.5-5.0); Alkaline Phosphatase 116 U/L (38-126); Blood Urea Nitrogen 27 mg/dl (7-17); Calcium 8.9 mg/dl (8.4-10.2); Carbon Dioxide 28 mmol/L (22-30); Chloride 101 mmol/L (98-107); Estimated Creatinine Clearance 40 ml/min; Glucose 106 mg/dl (70-99); Magnesium 2.1 mg/dl (1.6-2.3); Potassium 4.2 mmol/L (3.5-5.1); Sodium 142 mmol/L (135-145); Total Bilirubin 1.1 mg/dl (0.2-1.3); Total Protein 6.2 g/dl (6.3-8.2); eGFR > 60.00
--- NOTE | 2024-02-06 05:11 | PTCARENOTE ---
At 0226 TELE monitor alarmed pt in VTach. Pt had a 34 beat run of Vtach but denied any feeling of palpitations, discomfort, or pain. Pt was found resting in bed and woken up by TELE monitor alarming in room. Complete set of vital signs take BP
114/66 (see flowchart). Anselmo Joseph notified. Rec'd order for Mg add on to morning blood work. Pt resting with call webb in reach and agreed to report any discomfort. Plan of care ongoing.
[2024-02-06 07:45] VITALS: BP 102/56; BMI 20.2
[2024-02-06] MEDS: LASIX 40 MG IV (08:20)
[2024-02-06] MEDS: UROCIT-K 10 MEQ PO (08:21)
[2024-02-06] MEDS: TOPROL XL 25 MG PO (08:21)
[2024-02-06] MEDS: KCL 20 MEQ PO (08:21)
[2024-02-06] MEDS: VITAMIN B-12 500 MCG PO (08:21)
[2024-02-06] MEDS: ELIQUIS 2.5 MG PO (08:21)
[2024-02-06] MEDS: PACERONE 200 MG PO (08:21)
--- NOTE | 2024-02-06 11:05 | W.PN.CARDCBS ---
Addendum entered and electronically signed by Darnell Bolanos MD 02/06/24 11:41:
83-year-old woman with remote SVT or A. tach ablation, PAF, history of stroke and bronchiectasis, admitted January 24 with A-fib and heart failure. Discharged in A-fib with rate control as in hospice on January 26. Readmitted
with heart failure and A-fib, now NSR status post cardioversion
PMH: As above, chronic HFpEF, rare PAF, moderate to severe MR, SVT or A. 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
Allergies: Demerol and Levaquin
Outpatient meds: Atorvastatin, Eliquis, famotidine, furosemide, methenamine, metoprolol ER 25 twice daily, potassium citrate
Current meds: Apixaban 2.5 twice daily, atorvastatin 40 a day, vitamin B12, metoprolol ER 25 twice daily, potassium citrate, furosemide 40 IV twice daily, amiodarone 200 mg 3 times daily, potassium 20 mill equivalents daily
ROS negative except as above
Echo January 2024: EF 50-55%, septal contraction abnormality, mild LVH, moderate to severe MR, mild aortic stenosis, moderate to severe TR, ASD/PFO
102/56, pulse 59, resp rate 16, weight is 55.1 kg, down 0.5 kg, was 58.9 kg on admit, no distress, lungs are clear, systolic murmur at apex, JVD okay, not much edema,
Potassium 4.2, BUN and creatinine 27 and 0.9, ALT is 54, stable
Telemetry: Long run of nonsustained VT
Plan:
From a heart failure standpoint she seems much improved. Would switch to oral furosemide. Now back in sinus rhythm so would discharge on 40 mg a day.
She has a history of UTIs so probably not a good candidate for SGLT2 antagonist
Consider spironolactone, blood pressure marginal at present so we will hold off for now.
We will arrange for a 2-week rhythm Star monitor in light of atrial fibs and prolonged nonsustained VT. We discussed keeping her for another day given her VT, and she strongly prefers to go home.
We will arrange for outpatient cardiac follow-up.
Recommended cardiac medications at discharge:
Apixaban 2.5 mg twice daily
Atorvastatin 40 mg a day
Metoprolol ER 25 mg twice daily
Furosemide 40 mg daily
Potassium citrate 10 meq daily
Amiodarone 200 mg twice daily for 4 weeks, then 200 mg daily
BMP in 1 week
We will arrange for rhythm Star
Original Note:
Today's Communication / Plan
-
in SR s/p CV
30 beat run of NSVT overnight, asymptomatic. K/mag stable
rhythm star upon DC
continue toprol 25mg BID, amiodarone 200mg BID for 30 days then 200mg daily
lasix 40mg daily
eliquis 5mg BID
BMP/mag in 1 week
OP cardiac follow up arranged
Impression / Plan
-
Primary Automotive Service Consultant: Dr. Valerio Allison
Assessment:
Presentation with SOB
Acute on chronic HFpEF
PAF, historically burdens of 1-3% by loop recorder
Recent admission to 01/24-01/26/24 for CHF, afib
mod to severe MR
Chronic OAC with eliquis
history of SVT vs atach ablation at [facility] 1998
history of CVA with L visual field deficit 2020
resection of right occipital meningioma 07/2021 at [facility]
bronchiectasis
History of kidney stones
HLD
GERD
ECHO 01/2015 at [facility]: EF 50%, abnormal septal motion, basal to mid anterolateral wall poorly visualized, mild MAC, mild MR, mild to moderate AR, mild TR, mild PI, PASP 25 mmHg
ECHO 01/25/24: EF 50 to 55%, abnormal septal motion consistent with left bundle branch block, mild concentric LVH, severely dilated bilateral atria, moderate to severe MR, mild , mild AR, moderate to severe TR, PAP 30 to 35 mmHg, left to right
shunt suggestive of ASD/PFO
Plan:
-Presented with worsening SOB despite increasing oral lasix dose as OP. Admitted with acute heart failure exacerbation and rapid afib.
-weight down 3 pounds from admission if accurate, 121 pounds. reports breathing improved. transition back to po lasix 40mg daily. if with CHF recurrence, would consider transition to torsemide
-echo 01/24 with preserved EF and mod to severe MR. consider low dose spironolactone 12.5mg daily if BP allows as OP
-s/p successful CV to SR 02/04.
-started amiodarone this admission. continue 200mg BID for 30 days then decrease to 200mg daily.
-Continue Eliquis 5mg BID.
-of note, on review of tele overnight patient with ~30 beat run of NSVT while sleeping, asymptomatic. will review with EP. K/mag stable. continue toprol/amio
-will arrange rhythm star monitor for DC
-consider OP ischemic evaluation
-Could consider eventual workup for Mitraclip if she is agreeable.
-BMP/mag in 1 week
-Cardiology follow up arranged
HPI: Patient is an 83-year-old female with past medical history of bronchiectasis, history of stroke with left visual field deficit, resection of right occipital meningioma 07/2021 at [facility], history of SVT versus A.
tach ablation at [facility] in 1998, PAF with prior loop implants (now nonfunctional�last interrogation from 09/11/2022 with 0.6% A-fib burden) with historically low burden of typically 1 to 3% who had recent admission to [facility] for A-fib and
heart failure 01/24 - 01/26/2024. She was diuresed and her Toprol dose was increased. She was eager for discharge as her was on hospice, and he did unfortunately pass away on 01/26. She reports they had the 02/01/2024. She reports
she was seen in the office 11/13 and had complained of some worsening shortness of breath and her Lasix was increased from 20 mg daily to 40 mg daily, however does not feel like she improved with this. Last night she states she had difficulty
sleeping due to shortness of breath and so came to the emergency room for further evaluation and treatment. proBNP higher than last admission at 4000. She remains in A-fib with heart rates around to 100. She had been planned for outpatient
cardioversion 02/14/2024. She denies missed doses of Eliquis.
Progress Note - Automotive Service Consultant
Subjective
Date of Service: February 06, 2024
feels well. eager for DC.
Objective
Labs:
02/03/24 07:46
02/06/24 02:56
Labs
Hgb 14.1 g/dL (12.0-16.0) 02/03/24 07:46
Hct 44.6 % (37.0-47.0) 02/03/24 07:46
Plt Count 228 10^3/uL (130-400) 02/03/24 07:46
Sodium 142 mmol/L (135-145) 02/06/24 02:56
Potassium 4.2 mmol/L (3.5-5.1) 02/06/24 02:56
BUN 27 mg/dl (7-17) H 02/06/24 02:56
Creatinine 0.9 mg/dL (0.6-1.0) 02/06/24 02:56
Glucose 106 mg/dl (70-99) H 02/06/24 02:56
Vital Signs and I&O:
Vital Signs
Temp Pulse Resp BP Pulse Ox
97.8 F 59 16 102/56 95
02/06/24 07:45 02/06/24 10:00 02/06/24 07:45 02/06/24 08:21 02/06/24 08:15
Vital Signs
Temp Pulse Resp BP Pulse Ox
97.8 F 59 16 102/56 95
02/06/24 07:45 02/06/24 10:00 02/06/24 07:45 02/06/24 08:21 02/06/24 08:15
Intake & Output
02/04/24 02/05/24 02/06/24 02/07/24
07:59 07:59 07:59 07:59
Intake Total 940 / 940 480 / 480 240 / 240
Output Total 1300 / 1300 1575 / 1575 1300 / 1300 400 / 400
Balance -1300 / -1300 -635 / -635 -820 / -820 -160 / -160
Physical Exam
Physical Exam
GEN: No distress, awake, alert, oriented x3. sitting in chair
HEENT: supple, anicteric, mmm, eomi
LUNGS: Crackles RLB, no wheezes
CV: Reg, S1/S2, 1/6 murmur
ABD: soft, BS+, NT/ND
EXT: No cyanosis, clubbing. trace edema of B/L LE
NEURO: Gross non-focal
SKIN: Warm, pink, dry. No rash
--- NOTE | 2024-02-06 11:25 | CM ---
Chart reviewed. Patient is independent of ADLS, recently lost her , lives alone in a apartment at [facility], elevator access, 0 DME. Referral sent to [facility] and accepted. Plan is for the patient to return home with VN. CM
to follow
[2024-02-06 12:12] VITALS: BP 103/63
--- NOTE | 2024-02-06 13:28 | W.PN.HOSP.TC ---
Today's Communication/Plan
-
monitor vital signs
see plan
Patient wants to be discharged today, discussed with cardiology and they have placed a surveillance system monitor prior to discharge
Continue with amiodarone
Lasix switched to p.o.
Patient for discharge today
repeat labs outpatient
Time of discharge 38-minutes
Assessment / Plan
Assessment / Plan
Gen-AAOx3, NAD
HEENT-NC, AT, anicteric, clear oral mm
Neck-supple
CV-reg, no M, +S1/S2
Lungs-clear B/L
Abd-soft, NT, ND
Ext-no edema
Neuro-grossly non-focal
Psych-calm, cooperative
Acute on chronic heart failure with preserved EF -clinically improving, shortness of breath improving. was on IV lasix; now PO. BNP 4040. Cardiology following.
Last echo was 01/25/2024, LVEF 50 to 55%, indeterminate diastolic function, moderate to severe MR, moderate to severe TR. Left to right shunt across the interatrial septum suggestive of ASD/PFO.
Bilateral pleural effusions -right greater than left. Likely due to heart failure. Has never had thoracentesis. May need thoracentesis if not improved with diuresis.
Elevated transaminases -likely due to heart failure induced passive congestion. Monitor for now.
Paroxysmal atrial fibrillation -continue Eliquis, metoprolol. Amiodarone started by cardiology. Status post cardioversion 02/04, now in normal sinus rhythm. Recent TSH 2.58.
amio now BID
episode of VT; patient doesnt appear to be in distress. monitor. cardiology arranging monitor outpatient
Hyperlipidemia -atorvastatin.
history of stroke -left-sided visual deficit, 2020.
Chronic bronchiectasis -followed by pulmonary. No recent exacerbations. Did have pneumonia and COVID in October. Required brief hospitalization.
History of meningioma -resected 2021.
History of nephrolithiasis
GERD
DNR -confirmed with patient.
Anticipated Discharge: Today
Subjective/Interval History
-
Date of Service: February 06, 2024
denies pain
Objective Data
-
Labs:
Laboratory Results
02/06/24
02:56
Sodium 142
Potassium 4.2
Chloride 101
Carbon Dioxide 28
BUN 27 H
Creatinine 0.9
Glucose 106 H
Calcium 8.9
Total Bilirubin 1.1
AST 37 H
ALT 54 H
Alkaline Phosphatase 116
Vital Signs:
Vital Signs
Temp Pulse Resp BP Pulse Ox
98.2 F 59 18 102/56 94
02/06/24 12:12 02/06/24 10:00 02/06/24 12:12 02/06/24 08:21 02/06/24 12:12
I&O
02/05/24 02/06/24 02/07/24
06:59 06:59 06:59
Intake Total 940 / 940 480 / 480 240 / 240
Output Total 1575 / 1575 1100 / 1100 600 / 600
Balance -635 / -635 -620 / -620 -360 / -360
--- NOTE | 2024-02-06 14:12 | W.DCSUMMARY ---
Discharge Summary
Discharge Data
Date of Admission: 02/03/24
Date of Discharge: 02/06/24
-
Pending Results: No
Hospital Course
83-year-old female with past medical history of paroxysmal atrial fibrillation, hyperlipidemia, CVA with left-sided visual deficit, bronchiectasis, meningioma, nephro lithiasis, GERD, CHF came to the hospital with acute on chronic congestive heart
failure exacerbation. Patient was initially treated with IV Lasix which was later transitioned to oral Lasix prior to discharge. She also had episodes of atrial fibrillation for which she was started on amiodarone and also went for successful
cardioversion on 02/05/2024. She also had an episode of nonsustained ventricular tachycardia for which cardiology placed a compliance monitor prior to discharge for further monitoring. Since patient symptoms continue to improve and she remained in
normal sinus rhythm, she was then discharged home with instructions to follow-up closely with all her physicians outpatient.
Discharge Plan
-
Patient Disposition: Home (Routine Discharge)
Discharge Diagnosis/Procedures: Acute on chronic heart failure with preserved EF
Paroxysmal atrial fibrillation status post cardioversion
Non Sustained Ventricular tachycardia
Pleural effusion
Elevated LFTs
Diet: 2 Gram Sodium and Restrict fluids to 48 oz
Activity: As tolerated
Driving Restrictions: No driving for 24 hours
Bathing Restrictions: None
Blood Work: BMP/mag in 1 week
CMP next week with primary care provider
Specialty Instructions: Weigh Daily- Call MD for wt gain/loss 3 lbs overnight/5 lbs in 1 week
Instructions: *[facility] Heart Failure Instructions
Referrals:
[facility] [Other] (FAX [phone])
Gisselle Juarez MD [Family Provider] - in less than 1 week
Patti Huang CRNP [Specified Professional Personl] - 02/13/24 1:40 pm (You have a follow up visit with Dr. Valerio Allison's FIELD SCOUT, Patti Huang, at the [facility] office. Please call with questions.)
Additional Discharge Medication Instructions: continue amiodarone twice daily for 30 days then decrease to 200mg daily!
You will have 7 day compliance monitor placed prior to discharge!
Prescriptions:
New
amiodarone 200 mg Tablet
200 mg PO BID Qty: 60 0RF
Continued
cyanocobalamin (vitamin B-12) [Vitamin B-12] 500 MCG tablet
500 mcg PO MOWEFR
methenamine hippurate 1 GRAM tablet
1 g PO BID
famotidine 20 MG tablet
20 mg PO HS
cholecalciferol (vitamin D3) [Vitamin D3] 25 MCG capsule
1,000 unit PO DAILY
Metamucil Fiber Singles 1 PACKET powder in packet
2 tsp PO DAILY
Eliquis 5 MG tablet
2.5 mg PO BID
therapeutic multivitamin Tablet
1 tab PO DAILY
atorvastatin 40 mg Tablet
40 mg PO QPM Qty: 30 0RF
metoprolol succinate 25 mg Tablet Extended Release 24 Hr
25 mg PO BID Qty: 30 0RF
potassium citrate 10 MEQ tablet extended release
10 meq PO DAILY Qty: 0 0RF
furosemide [Lasix] 20 mg tablet
40 mg PO DAILY
Discharge Orders:
Discharge Patient (As Directed); Ordered 02/06/24
Ordered By: Robbin Montes
Care Plan Goals
Care Plan Goals:
Problem: Readiness for enhanced knowledge related to diagnosis and treatment plan
Goal: Understand your diagnosis and treatment plan needs, including medications if applicable.
Instructions: Know your diagnosis, underlying causes and treatment plan options, including medications if applicable. Consult with your health care team to learn about your diagnosis and treatment plan, including medications if applicable.
Discharge Date and Time
Discharge Date/Time: 02/06/24 16:41
Print Language: [id number]
--- NOTE | 2024-02-07 10:59 | W.HF.CON ---
Heart Failure
- LV Function
Left ventricular function study result: LV Ejection fraction >/= 50% (ECHO 01/25/24)
Ejection Fraction Percentage: 50-55
- ARNI
Patient already on ARNI: No
Heart Failure ARNI Not Indicated: LV Ejection Fraction >/= 40%
- ACEI/ARB
Patient already on ACEI/ARB: No
Heart Failure ACEI/ARB Not Indicated: LV Ejection Fraction > 40%
- Beta Fernando
Patient already on Evidence Based Beta Fernando: Yes
- Mineralocorticord Receptor Antagonist
Patient already on MRA: No
Heart Failure MRA Not Indicated: LV Ejection Fraction > 40%
- SGLT-2 Inhibitor
Patient already on SGLT-2 Inhibitor: No
Heart Failure SGLT-2 Inhibitor Contraindication: Patient Refusal (UTIs)
Heart Failure SGLT-2 Inhibitor Not Indicated: LV Ejection Fraction >40%
- Afib Anticoagulation
Patient already on Anticoagulation for Afib: Yes
- NYHA CHF Classification
NYHA CHF Classification Level: Class III - Symptoms w/ min exertion, interferes w/ nml daily activity
- ACC/AHA Stage
ACC/AHA Stage: Stage C: Symptomatic Heart Failure
== END 2024-02-06 16:41 | disposition home health service (06) | DRG 308 ==
LOC: IVU 10:00
PROVIDERS: Internal Medicine Cardiovascular Disease; Student in an Organized Health Care Education/Training Program; ADMITTING PHYSICIAN Hospitalist; ATTENDING PHYSICIAN Internal Medicine; CONSULT PHYSICIAN Internal Medicine Cardiovascular Disease; EMERGENCY PHYSICIAN Student in an Organized Health Care Education/Training Program; FAMILY PHYSICIAN Family Medicine
PROC: 5A2204Z Restoration of Cardiac Rhythm, Single (ICD-10-PCS; 2024-02-05)
DX: I48.0 Paroxysmal atrial fibrillation (principal); I50.33 Acute on chronic diastolic (congestive) heart failure; I47.10 Supraventricular tachycardia, unspecified; I44.7 Left bundle-branch block, unspecified; K21.9 Gastro-esophageal reflux disease without esophagitis; Z66 Do not resuscitate; J47.9 Bronchiectasis, uncomplicated; I34.0 Nonrheumatic mitral (valve) insufficiency; I69.312 Visuospatial deficit and spatial neglect following cerebral infarction; Z95.0 Presence of cardiac pacemaker; Z88.5 Allergy status to narcotic agent; Z88.1 Allergy status to other antibiotic agents; Z86.16 Personal history of COVID-19; Z79.899 Other long term (current) drug therapy; Z79.01 Long term (current) use of anticoagulants
CPT/HCPCS: 71046; 80053; 83735; 83880; 85025; 92960; 93005; 96374; 99285

== ENCOUNTER → 2024-10-29 10:24 | Outpatient (REF) | payer MEDICARE, OTHER, SELFPAY | LOC: RAD 10:24 | PROVIDERS: ATTENDING PHYSICIAN Internal Medicine Critical Care Medicine; FAMILY PHYSICIAN Family Medicine | DX: J47.9 Bronchiectasis, uncomplicated (principal) | CPT/HCPCS: 71046 ==